=== PATIENT | female | born 1985 | race African-American/Black ===

== ENCOUNTER 2016-06-03 19:01 | Outpatient (CLI) | payer MEDICAID ==
[2016-06-03 19:41] LABS: APPEARANCE,URINE CLOUDY; BILIRUBIN,URINE NEGATIVE (NEGATIVE); CALCIUM OXALATE CRYSTALS,URINE TOO NUMEROUS TO CNT /HPF; GLUCOSE, URINE NEGATIVE (NEGATIVE); KETONES,URINE NEGATIVE (NEGATIVE); LEUKOCYTE ESTERASE,URINE SMALL (NEGATIVE); NITRITE,URINE NEGATIVE (NEGATIVE); PROTEIN,URINE 30 mg/dL (NEGATIVE); URINE SPECIFIC GRAVITY 1.017
[2016-06-03 19:45] LABS: ABSOLUTE EOSINOPHILS # (AUTO) 0.1 10^3/uL (0.0-0.6); ABSOLUTE LYMPHOCYTES (AUTO) 1.9 10^3/uL (0.5-4.7); ABSOLUTE MONOCYTES (AUTO) 0.8 10^3/uL (0.1-1.4); BASOPHILS % (AUTO) 0.2 % (0-2); HEMATOCRIT 27.4 % (36.0-47.0); HEMOGLOBIN 9.6 g/dL (12.0-15.5); HGB HCT DIFFERENCE 1.4; LYMPHOCYTES % (AUTO) 21.5 % (13-45); MEAN CORPUSCULAR HEMOGLOBIN 31.4 pg (27.0-33.4); MEAN CORPUSCULAR VOLUME 90 fl (80-97); MONOCYTES % (AUTO) 9.2 % (3-13); RED BLOOD COUNT 3.05 10^6/uL (3.72-5.28); RED CELL DISTRIBUTION WIDTH 14.4 % (11.5-14.0); SEGMENTED NEUTROPHILS % (AUTO) 68.1 % (42-78); WHITE BLOOD COUNT 8.9 10^3/uL (4.0-10.5)
[2016-06-03 19:54] LABS: URINE BARBITURATES SCREEN NEGATIVE; URINE METHADONE SCREEN NEGATIVE; URINE OPIATES LOW NEGATIVE; URINE PHENCYCLIDINE SCREEN NEGATIVE
--- NOTE | 2016-06-03 20:01 | L&D Flow Sheet ---
LD Flowsheet Datetime Report Generated by CPN: 06/03/2016 20:00 Datetime: 06/03/2016 19:43 Patient Care Patient Position/Activity: Left Extreme (Juani Ledgerwood, RN) Datetime: 06/03/2016 19:40 Vital Signs NBP Sys/Ophelia/Mean (mmHg): 117 (QS system process) : 58 (QS system process) : 81 (QS system process) Pulse: 88 (QS system process) Communication LaborFlag: Antepartum (QS system process) Datetime: 06/03/2016 19:37 Patient Care Patient Position/Activity: Right Tilt (Juani Antonio, RN) I/O Interventions: Popsicle (Juani Ledgerwood, RN) Datetime: 06/03/2016 19:30 Uterine Activity Monitor Mode: External (Juani Ubaldogerwood, RN) Frequency (min): none (Juani Ledgerwood, RN) Resting Tone (Palpate): Relaxed (Juani Ledgerwood, RN) Contraction Comments: no contractions noted during palpation, pt reports no feeling of contractions. (Juani Ledgerwood, RN) Assessment A Monitor Mode: External US (Juani Ledgerwood, RN) FHR Baseline Rate : 155 (Juani Ledgerwood, RN) FHR Baseline Changes: No Baseline Change (Juani Ledgerwood, RN) Variability: Moderate 6-25 bpm (Juani Ledgerwood, RN) Accelerations: 15X15 (Juani Ledgerwood, RN) Decelerations: None (Juani Ledgerwood, RN) Datetime: 06/03/2016 19:18 Pain Pain Scale: 3 (Juani Ledgerwood, RN) Pain Presence: Constant (Juani Ledgerwood, RN) Pain Type: Sharp (Juani Ledgerwood, RN) Pain Location: Perineum (Juani Ledgerwood, RN) Vaginal Exam Vaginal Bleeding: None (Juani Ledgerwood, RN) Maternal Assessment Level of Consciousness: Fully Conscious (Juani Ledgerwood, RN) DTR's/Clonus: DTRs 2+; No Clonus (Juani Ledgerwood, RN) Headache: Denies (Juani Ledgerwood, RN) Breath Sounds, Left: Clear and Equal (Juani Ledgerwood, RN) Breath Sounds, Right: Clear and Equal (Juani Ledgerwood, RN) Nausea/Vomiting: Denies (Juani Ledgerwood, RN) RUQ Epigastric Pain: Denies (Juani Ledgerwood, RN) Teaching Instructional Method: Demo; Verbal; Patient Instructed (Juani Ledgerwood, RN) Plan of Care: Plan of Care Discussed (Juani Ledgerwood, RN) Unit Routine: [place] to Room; Call Wu; Bed; Visiting Policy; Waiting Areas; Handwashing; Monitoring; Safety/Fall Risk Prevention (Juani Ledgerwood, RN) Communication LaborFlag: Antepartum (QS system process) Datetime: 02/20/2016 11:58 Communication LaborFlag: Antepartum (QS system process) Datetime: 02/20/2016 11:30 Communication LaborFlag: Antepartum (QS system process) Datetime: 02/20/2016 11:00 Communication LaborFlag: Antepartum (QS system process) Datetime: 02/20/2016 09:31 Communication LaborFlag: Antepartum (QS system process) Datetime: 02/20/2016 09:30 Communication LaborFlag: Antepartum (QS system process) Datetime: 02/20/2016 09:11 Communication LaborFlag: Antepartum (QS system process) Datetime: 02/20/2016 09:01 Communication LaborFlag: Antepartum (QS system process) Datetime: 06/03/2015 05:35 Communication LaborFlag: Antepartum (QS system process) Datetime: 06/03/2015 05:03 Communication LaborFlag: Antepartum (QS system process) Datetime: 06/03/2015 04:36 Temperature (C): 36.7 (QS system process) Communication LaborFlag: Antepartum (QS system process) Datetime: 06/03/2015 03:18 Communication LaborFlag: Antepartum (QS system process) Datetime: 06/03/2015 03:15 Communication LaborFlag: Antepartum (QS system process)
[2016-06-03 20:30] LABS: RUBELLA IGG ANTIBODY 8.83 IU/mL
[2016-06-03 20:43] LABS: ADD HIVPANEL? NO; HIV (1 AND 2) ANTIBODY NEGATIVE (NEGATIVE)
--- NOTE | 2016-06-03 21:24 | Non Stress Test Report ---
Non Stress Test Datetime Report Generated by CPN: 06/03/2016 21:23 DEMOGRAPHIC EGA NST: 39.0 INDICATION Indication for Study: Ordered by Provider VITAL SIGNS Temperature - NST: 98.0 Pulse - NST: 88 RESP - NST: 14 NBPSYS NST: 117 NBPDIA NST: 58 MONITORING Monitor Explained: Monitor Explained; Test Explained; Patient Verbalized Understanding Time on Monitor: 06/03/2016 19:05 Time off Monitor: 06/02/2016 20:35 NST Duration: -1350 NST INTERVENTIONS NST Interventions: PO Hydration Physician Notified NST: Dr Adams BABY A: [id number] BABY A Contraction Frequency : none FHR Baseline : 155 Accelerations : 15X15 Decelerations : None Variability : Moderate 6-25bpm NST Review: Meets Criteria for Reactive NST NST Review and Verified By : RCahoon, RNC NST Results: Reactive NST REPORT Report Trigger: Send Report
[2016-06-05 06:39] LABS: HEPATITIS C VIRUS AB 0.1 s/co ratio (0.0-0.9)
== END 2016-06-03 21:09 | disposition home or self-care (01) ==
LOC: LC 19:01
PROVIDERS: ATTEND Obstetrics & Gynecology
PROC: 4A1HXCZ Monitoring of Products of Conception, Cardiac Rate, External Approach (ICD-10-PCS; principal; 2016-06-03)
DX: O26.893 Other specified pregnancy related conditions, third trimester (principal); R10.2 Pelvic and perineal pain; Z3A.39 39 weeks gestation of pregnancy
CPT/HCPCS: 36415; 59025; 80307; 81001; 85025; 86592; 86701; 86762; 86803; 86804; 86850; 86900; 86901; 87340

== ENCOUNTER 2016-06-11 06:17 | Inpatient (IN) | payer MEDICAID ==
[2016-06-11] MEDS ORDERED: PENICILLIN G-K 5 MILLION UNIT VIAL ONE (06:44)
[2016-06-11] MEDS ORDERED: LIDOCAINE 1% INJ-PF (10 MG/ML) 30 ML SDV ONE (06:44)
[2016-06-11] MEDS ORDERED: MISOPROSTOL 0.2 MG TABLET ONE (06:44)
[2016-06-11] MEDS ORDERED: OXYTOCIN/NORMAL SALINE 20 UNIT/1,000 ML RTUINJ ONE (06:44)
[2016-06-11] MEDS ORDERED: OXYTOCIN 10 UNIT/ML VIAL ONE (06:45)
[2016-06-11 07:19] LABS: ABSOLUTE EOSINOPHILS # (AUTO) 0.1 10^3/uL (0.0-0.6); ABSOLUTE LYMPHOCYTES (AUTO) 2.1 10^3/uL (0.5-4.7); ABSOLUTE MONOCYTES (AUTO) 0.8 10^3/uL (0.1-1.4); ABSOLUTE NEUT (AUTO) 6.5 10^3/uL (1.7-8.2); BASOPHILS % (AUTO) 0.3 % (0-2); EOSINOPHILS % (AUTO) 0.8 % (0-6); HEMATOCRIT 29.9 % (36.0-47.0); HEMOGLOBIN 10.4 g/dL (12.0-15.5); HGB HCT DIFFERENCE 1.3; LYMPHOCYTES % (AUTO) 22.3 % (13-45); MEAN CORPUSCULAR HEMOGLOBIN 31.1 pg (27.0-33.4); MEAN CORPUSCULAR HGB CONC 34.6 g/dL (32.0-36.0); MEAN CORPUSCULAR VOLUME 90 fl (80-97); MONOCYTES % (AUTO) 8.8 % (3-13); RED BLOOD COUNT 3.33 10^6/uL (3.72-5.28); RED CELL DISTRIBUTION WIDTH 14.7 % (11.5-14.0); SEGMENTED NEUTROPHILS % (AUTO) 67.8 % (42-78); WHITE BLOOD COUNT 9.6 10^3/uL (4.0-10.5)
[2016-06-11 07:27] LABS: APPEARANCE,URINE TURBID; BILIRUBIN,URINE SMALL (NEGATIVE); GLUCOSE, URINE NEGATIVE (NEGATIVE); KETONES,URINE NEGATIVE (NEGATIVE); LEUKOCYTE ESTERASE,URINE MODERATE (NEGATIVE); NITRITE,URINE NEGATIVE (NEGATIVE); PROTEIN,URINE 100 mg/dL (NEGATIVE); URINE SPECIFIC GRAVITY 1.012; UROBILINOGEN,URINE NEGATIVE mg/dL (<2.0)
[2016-06-11] MEDS ORDERED: EPHEDRINE SULFATE INJ 50 MG/1 ML AMPULE ONE (07:32)
[2016-06-11] MEDS ORDERED: FENTANYL/BUPIVACAINE/NS/PF 200 MCG/100 ML RTUINJ EPI ONE (07:32)
[2016-06-11] MEDS ORDERED: BUPIVACAINE HCL 0.25 % INJ/PF (2.5 MG/1 ML) 30 ML VIAL ONE (07:33)
[2016-06-11] MEDS ORDERED: FENTANYL CITRATE INJ/PF 100 MCG/2 ML AMPUL ONE (07:38)
--- NOTE | 2016-06-11 08:00 | L&D Flow Sheet ---
LD Flowsheet Datetime Report Generated by CPN: 06/11/2016 08:00 Datetime: 06/11/2016 07:59 NBP Sys/Ophelia/Mean (mmHg): 149 (QS system process) : 97 (QS system process) : 116 (QS system process) Pulse: 77 (QS system process) LaborFlag: Antepartum (QS system process) Datetime: 06/11/2016 07:26 Dilatation (cm): 9.5 (Juani Antonio RN) Exam by: Dr Martines (Juani Ledgerwood, RN) Datetime: 06/11/2016 07:24 Monitor Interventions for FHR: FSE Applied (Juani Ledgerwood, RN) Datetime: 06/11/2016 07:17 Communication: Provider at Bedside (Juani Ledgerwood, RN) Communication Comments: Dr Martines at bedside (Juani Ledgerwood, RN) Datetime: 06/11/2016 07:16 Monitor Mode: External (Leandra Bellavance, RNC) Monitor Interventions for UA: [place] Adjusted (Leandra Bellavance, RNC) Frequency (min): 2-5 (Leandra Bellavance, RNC) Quality: Moderate to Strong (Leandra Bellavance, RNC) Duration (sec): 50-60 (Leandra Bellavance, RNC) Pattern: Normal: <= 5 Contractions in 10 Minutes (Leandra Bellavance, RNC) Resting Tone (Palpate): Relaxed (Leandra Bellavance, RNC) Monitor Mode: External US (Leandra Bellavance, RNC) Monitor Interventions for FHR: Ultrasound Adjusted (Leandra Bellavance, RNC) FHR Baseline Rate : 140 (Leandra Bellavance, RNC) Datetime: 06/11/2016 07:15 Level of Consciousness: Fully Conscious (Leandra Bellavance, RNC) DTR's/Clonus: DTRs 2+; No Clonus (Leandra Bellavance, RNC) Headache: Denies (Leandra Bellavance, RNC) Breath Sounds, Left: Clear and Equal (Leandra Bellavance, RNC) Breath Sounds, Right: Clear and Equal (Leandra Bellavance, RNC) Nausea/Vomiting: Denies (Leandra Bellavance, RNC) RUQ Epigastric Pain: Denies (Leandra Bellavance, RNC) Datetime: 06/11/2016 06:56 Pain Scale: 5 (Radha Steven) Pain Presence: Intermittent (Radha Steven) Pain Type: Cramping (Radha Steven) Pain Location: Abdomen; Back (Radha Steven) Pain Goal: 0 (Radha Steven) Pain Relief Measures: Comfort Measures (Radha Steven) Pain Coping: Crying; Writhing (Rdaha Steven) Membrane Status: Ruptured (Radha Steven) Membranes Ruptured Date/Time: 06/11/2016 06:00 (Radha Steven) Membranes Rupture Method: Spontaneous (Radha Steven) Amniotic Fluid Color: Heavy Meconium (Radha Steven) Amniotic Fluid Amount: Moderate (Radha Steven) Amniotic Fluid Odor: Foul (Radha Steven) Vaginal Bleeding: None (Radha Steven) Level of Consciousness: Fully Conscious (Radha Steven) DTR's/Clonus: DTRs 2+; No Clonus (Radha Steven) Headache: Denies (Radha Steven) Breath Sounds, Left: Clear and Equal (Radha Steven) Breath Sounds, Right: Clear and Equal (Radha Steven) Nausea/Vomiting: Denies (Radha Steven) RUQ Epigastric Pain: Denies (Radha Steven) Patient Position/Activity: Left Lateral (Radha Steven) Instructional Method: Verbal (Radha Steven) Plan of Care: Plan of Care Discussed; Vaginal Delivery (Radha Steven) Unit Routine: [place] to Room; Call Wu; Bed; Visiting Policy; Waiting Areas; Infant Security; Phone/Cell Phone Use; Photography; Unit Personnel; Consents Signed; Handwashing; Flu/Illness Precautions; Monitoring; IV Pumps; Safety/Fall Risk Prevention; Diet/Nutrition Services; Bathroom Privileges; Routine Time Outs; Medications (Radha Steven) LaborFlag: Antepartum (QS system process) Datetime: 06/11/2016 06:48 Antibiotics: Penicillin IV (Units) @ (Annotations: [id number] units) (Radha Steven) Datetime: 06/11/2016 06:45 IV/Blood Work: IV Started; IV Bolus Started (Annotations: 18 g right forearm) (Radha Steven) Datetime: 06/11/2016 06:35 Dilatation (cm): 8.0 (Radha Steven) Effacement (%): 70 (Radha Steven) Station: -2 (Radha Steven) Exam by: Dr. Martines (Laura Montero, RN) Datetime: 06/11/2016 06:32 NBP Sys/Ophelia/Mean (mmHg): 129 (QS system process) : 59 (QS system process) : 85 (QS system process) Pulse: 81 (QS system process) LaborFlag: Antepartum (QS system process)
[2016-06-11] MEDS ORDERED: IBUPROFEN 800 MG TABLET ONE (09:06)
[2016-06-11] MEDS ORDERED: ACETAMINOPHEN WITH CODEINE #3 TABLET ONE (09:06)
[2016-06-11] MEDS ORDERED: OXYCODONE HCL IR 5 MG TABLET ONE (09:22)
[2016-06-11] MEDS ORDERED: NA PHOS,M-B/NA PHOS,DI-BA (ADULT) 133 ML ENEMA PR PRN (09:22)
[2016-06-11] MEDS ORDERED: BENZOCAINE/MENTHOL AEROSOL SPRAY 56 ML TOP PRN (09:22)
[2016-06-11] MEDS ORDERED: PROMETHAZINE HCL 25 MG SUPP.RECT PR PRN (09:22)
[2016-06-11] MEDS ORDERED: DIBUCAINE 1% OINTMENT 28 GM TP PRN (09:22)
[2016-06-11] MEDS ORDERED: DIPHENHYDRAMINE HCL 25 MG CAPSULE PO PRN (09:22)
[2016-06-11] MEDS ORDERED: DIPH/PERTUSS(ACELL)/TETANUS VAC/PF 0.5 ML SYR (>=10YO) IM PRN (09:22)
[2016-06-11] MEDS ORDERED: ACETAMINOPHEN 650 MG SUPP.RECT PR PRN (09:22)
[2016-06-11] MEDS ORDERED: PSEUDOEPHEDRINE HCL 30 MG TABLET PO PRN (09:22)
[2016-06-11] MEDS ORDERED: ACETAMINOPHEN WITH CODEINE #3 TABLET PO PRN ×2 (09:22)
[2016-06-11] MEDS ORDERED: MAGNESIUM HYDROXIDE SUSP 30 ML UDCUP PO PRN (09:22)
[2016-06-11] MEDS ORDERED: ZOLPIDEM TARTRATE 5 MG TABLET PO PRN (09:22)
[2016-06-11] MEDS ORDERED: OXYTOCIN/NORMAL SALINE 1,000 ML IV PRN (09:22)
[2016-06-11] MEDS ORDERED: MEASLES,MUMPS&RUBELLA VACC/PF 0.5 ML VIAL SUBCUT PRN (09:22)
[2016-06-11] MEDS ORDERED: PROMETHAZINE HCL INJ 25 MG/1 ML VIAL IV PRN (09:22)
[2016-06-11] MEDS ORDERED: GLYCERIN/WITCH HAZEL LEAF 1 EACH MED..PAD TP PRN (09:22)
[2016-06-11] MEDS ORDERED: PROMETHAZINE HCL 25 MG TABLET PO PRN (09:22)
--- NOTE | 2016-06-11 10:50 | Admission Physical ---
Datetime Report Generated by CPN: 06/11/2016 10:50 CURRENT ADMISSION Chief Complaint: Uterine Contractions; Suspected Ruptured Membranes Indication for Induction: Not Applicable; Post Dates Admit Plan: Admit to Unit; Initiate Labor Protocol ALLERGIES Medication Allergies: No Medication Allergies: latex/CA/swelling (06/03/2016) Medication Allergies: latex/CA/swelling (02/21/2016) Medication Allergies: latex/CA/swelling (02/20/2016) Medication Allergies: latex/CA/swelling (07/07/2015) Medication Allergies: Latex/CA/swelling (06/03/2015) Medication Allergies: Latex/CA/swelling (11/10/2014) Latex: Latex Allergies Food Allergies: none Environmental Allergies: none OBSTETRICAL HISTORY EDC: 06/10/2016 00:00 : 6 Para: 4 Term: 2 : 2 SAB: 1 IAB: 0 Ectopic: 0 Livin Cesareans: 2 VBACs: 0 Multiple Births: 0 Gestational Diabetes: Unknown Rh Sensitization: Unknown Incompetent Cervix: Unknown LISSETTE: Unknown Infertility: Unknown ART Treatment: Unknown Uterine Anomaly: Unknown Hx Previous C/S: Yes Macrosomia: Unknown Hx Loss/Stillborn: Unknown PIH: Unknown Hx : No Placenta Previa/Abruption: Unknown PTL/PROM: Yes Post Hemorrhage: Unknown Obstetrical History Comments: G1: SAB G2: 2009, term G3: 2010, 29 week G4: 2014, term c/s for failure to progress G5: 2015, PPROM 24wk, , alive, no complications per pt G6: Current * History per pt SEE RECORDS Alcohol: No Marijuana : Yes Cocaine: No Other Illicit Drugs: No Cigarettes: Former Smoker. [id number] MEDICAL HISTORY Diabetes: Unknown Blood Transfusion: Unknown Pulmonary Disease (Asthma, TB): Unknown Breast Disease: Unknown Hypertension: Unknown Trauma Manager Surgery: Unknown Heart Disease: Unknown Hosp/Surgery: Yes Autoimmune Disorder: Unknown Anesthetic Complications: Unknown Kidney Disease: Unknown Abnormal Pap Smear: Unknown Neuro/Epilepsy: Unknown Psychiatric Disorders: Unknown Other Medical Diseases: Unknown Hepatitis/Liver Disease: Unknown Significant Family History: Unknown Varicosities/Phlebitis: Unknown Trauma/Violence : Unknown Thyroid Dysfunction: Unknown Medical History Comments: CHILDBIRTH _ C/SECTION x 1 INFECTIOUS HISTORY Gonorrhea: Unknown Genital Herpes: Unknown Chlamydia: Unknown Tuberculosis: Unknown Syphilis: Unknown Hepatitis: Unknown Rash or Viral Illness: Unknown HPV: Unknown PHYSICAL EXAM General: Normal HEENT: Normal Neurologic: Normal Thyroid: Normal Heart: Normal Lungs: Normal Breast: Deferred Back: Normal Abdomen: Normal Genitourinary Exam: Normal Extremities: Normal DTRs: Normal Pelvic Type: Adequate Vital Signs: Reviewed; Within Normal Limits MEMBRANES Pooling: Positive Membranes: Ruptured Amniotic Fluid Color: Meconium, Heavy FETUS A EGA: 40.1 Monitoring: External US FHR- Baseline: 130 Variability: Moderate 6-25bpm Accelerations: 10X10 Decelerations: None FHR Category: Category II Presentation: Vertex Admit Comment: 31yo (H/o x 2, C/S x 1 then proven pelvis x1). Largest baby vaginally was 6#6oz. She reports no complications with . She reports SROM approx 1 hour ago. Pea soup meconium noted. complicated by No care. Suspect 40+1ega by 25wks US. She also has a h/o bartholin's cyst on right which was apparently marsupialized 08/30/2015 - however per pt reaccumulated in approx 1 month and now is 3-4cm on right. Left is normal. She takes oxycodone nieto for scoliosis and smoke THC - last was last week. She reports seeing Dr. English in the past but has had no care because pt reports that her medicaid was taken away. Anticipate . Will attept to get pt epidural. EFW 7-7.5# PLANS FOR LABOR AND DELIVERY Labor and Delivery: None Pain Management: Epidural Feeding Preference: Formula INFORMED CONSENT Informed Consent Obtained: Vaginal Delivery; Vaginal After ; Risks, Benefits and Alternatives Discussed Signature: with User ID: [email or web address] : I personally evaluated and examined the patient in conjunction with the MLP and agree with the assessment, treatment plan and disposition.
[2016-06-11] MEDS: FAMOTIDINE 20 MG TABLET PO SCH ×2 (12:19→21:17)
[2016-06-11] MEDS: PRENATAL VITAMIN W-O CA NO5/FE FUMARATE/FA CAPSULE PO SCH (12:19)
[2016-06-11] MEDS: FERROUS SULFATE 325 MG TABLET PO SCH ×2 (12:19→18:01)
[2016-06-11] MEDS: DOCUSATE SODIUM 100 MG CAPSULE PO SCH ×2 (12:19→18:01)
[2016-06-11] MEDS: OXYCODONE HCL SR 10 MG TABLET PO SCH ×2 (12:19→22:36)
[2016-06-11] MEDS: SENNOSIDES/DOCUSATE 8.6-50 MG 1 EACH TABLET PO SCH (12:19)
[2016-06-11] MEDS: IBUPROFEN 800 MG TABLET PO SCH ×2 (13:48→21:15)
--- NOTE | 2016-06-11 19:00 | L&D Flow Sheet ---
LD Flowsheet Datetime Report Generated by CPN: 06/11/2016 19:00 Datetime: 06/11/2016 10:05 NBP Sys/Ophelia/Mean (mmHg): 114 (QS system process) : 56 (QS system process) : 81 (QS system process) Pulse: 57 (QS system process) Respirations: 17 (Leandra Bellavance, RNC) Datetime: 06/11/2016 09:50 NBP Sys/Ophelia/Mean (mmHg): 109 (QS system process) : 53 (QS system process) : 77 (QS system process) Pulse: 57 (QS system process) Respirations: 16 (Leandra Bellavance, RNC) Datetime: 06/11/2016 09:36 NBP Sys/Ophelia/Mean (mmHg): 126 (QS system process) : 58 (QS system process) : 84 (QS system process) Pulse: 76 (QS system process) Respirations: 18 (Leandra Bellavance, RNC) Datetime: 06/11/2016 09:33 NBP Sys/Ophelia/Mean (mmHg): 102 (QS system process) : 58 (QS system process) : 77 (QS system process) Pulse: 70 (QS system process) Respirations: 16 (Leandra Bellavance, RNC) Pain Assessment Comments: pain better No c/o (Leandra Bellavance, RNC) Datetime: 06/11/2016 08:50 NBP Sys/Ophelia/Mean (mmHg): 121 (QS system process) : 62 (QS system process) : 89 (QS system process) Pulse: 190 (QS system process) Temperature (F): 97.6 (Leandra Bellavance, RNC) Temperature (C): 36.4 (QS system process) Pain Assessment Comments: medicated with oxycodone 10 mg po for back pain The treatment for back pain was discussed with her private doctor Dr English (Leandra Bellavance, RNC) Datetime: 06/11/2016 08:45 Stage of : Recovery (Leandra Bellavance, RNC) Communication Comments: delivery of placenta Pitocin hung (Leandra Bellavance, RNC) Datetime: 06/11/2016 08:39 Respirations: 18 (Leandra Bellavance, RNC) Stage 2 Comments: delivery by Dain Olson CNM (Leandra Bellavance, RNC) Additional Nursing Comments: delivery of viable female (Leandra Bellavance, RNC) LaborFlag: Antepartum (QS system process) Datetime: 06/11/2016 08:35 Monitor Mode: External (Leandra Bellavance, RNC) Frequency (min): 2-2.5 (Leandra Bellavance, RNC) Quality: Moderate to Strong (Leandra Bellavance, RNC) Duration (sec): 60-80 (Leandra Bellavance, RNC) Resting Tone (Palpate): Relaxed (Leandra Bellavance, RNC) Monitor Mode: External US (Leandra Bellavance, RNC) FHR Baseline Rate : 110 (Leandra Bellavance, RNC) Variability: Moderate 6-25 bpm (Leandra Bellavance, RNC) Accelerations: None (Leandra Bellavance, RNC) Decelerations: Variable (Leandra Bellavance, RNC) IV/Blood Work: IV Infusing per Order (Leandra Bellavance, RNC) Patient Position/Activity: Semi-Fowlers (Leandra Bellavance, RNC) Pushing Position: Pushing with Contractions (Leandra Bellavance, RNC) Pushing Progress: Descent with Pushing (Leandra Bellavance, RNC) Datetime: 06/11/2016 08:33 NBP Sys/Ophelia/Mean (mmHg): 139 (QS system process) : 60 (QS system process) : 86 (QS system process) Pulse: 114 (QS system process) LaborFlag: Antepartum (QS system process) Datetime: 06/11/2016 08:30 Monitor Mode: External (Leandra Bellavance, RNC) Frequency (min): 2-3 (Leandra Bellavance, RNC) Quality: Moderate to Strong (Leandra Bellavance, RNC) Duration (sec): 50-60 (Leandra Bellavance, RNC) Resting Tone (Palpate): Relaxed (Leandra Bellavance, RNC) Monitor Mode: External US (Leandra Bellavance, RNC) FHR Baseline Rate : 110 (Leandra Bellavance, RNC) Variability: Moderate 6-25 bpm (Leandra Bellavance, RNC) Accelerations: None (Leandra Bellavance, RNC) Decelerations: Variable (Leandra Bellavance, RNC) Pushing: Coached on Pushing; Urge to Push (Leandra Bellavance, RNC) Pushing Position: Pushing with Contractions (Leandra Bellavance, RNC) Pushing Progress: Descent with Pushing (Leandra Bellavance, RNC) Datetime: 06/11/2016 08:20 Dilatation (cm): 10.0 (Leandra Bellavance, RNC) Effacement (%): 100 (Leandra Bellavance, RNC) Station: -1 (Leandra Bellavance, RNC) Exam by: D Bellavance RNC (Leandra Bellavance, RNC) Datetime: 06/11/2016 08:17 Monitor Mode: External (Leandra Bellavance, RNC) Frequency (min): 2-4 (Leandra Bellavance, RNC) Quality: Moderate to Strong (Leandra Bellavance, RNC) Duration (sec): 50-70 (Leandra Bellavance, RNC) Resting Tone (Palpate): Relaxed (Leandra Bellavance, RNC) Monitor Mode: External US (Leandra Bellavance, RNC) FHR Baseline Rate : 120 (Leandra Bellavance, RNC) Variability: Moderate 6-25 bpm (Leandra Bellavance, RNC) Accelerations: None (Leandra Bellavance, RNC) Decelerations: Variable (Leandra Bellavance, RNC) IV/Blood Work: IV Infusing per Order (Leandra Bellavance, RNC) Datetime: 06/11/2016 08:15 Monitor Mode: External (Leandra Bellavance, RNC) Monitor Interventions for UA: [place] Adjusted (Leandra Bellavance, RNC) Frequency (min): 2-4 (Leandra Bellavance, RNC) Quality: Moderate to Strong (Leandra Bellavance, RNC) Duration (sec): 60-70 (Leandra Bellavance, RNC) Resting Tone (Palpate): Relaxed (Leandra Bellavance, RNC) Monitor Mode: External US (Leandra Bellavance, RNC) FHR Baseline Rate : 120 (Leandra Bellavance, RNC) Variability: Moderate 6-25 bpm (Leandra Bellavance, RNC) Accelerations: 15X15 (Leandra Bellavance, RNC) Decelerations: None (Leandra Bellavance, RNC) IV/Blood Work: IV Started (Leandra Bellavance, RNC) Patient Care Comments: iv restarted (Leandra Bellavance, RNC) Datetime: 06/11/2016 08:02 NBP Sys/Ophelia/Mean (mmHg): 132 (QS system process) : 77 (QS system process) : 100 (QS system process) Pulse: 60 (QS system process) Respirations: 16 (Leandra Bellavance, RNC) LaborFlag: Antepartum (QS system process) Datetime: 06/11/2016 07:59 NBP Sys/Ophelia/Mean (mmHg): 149 (QS system process) : 97 (QS system process) : 116 (QS system process) Pulse: 77 (QS system process) LaborFlag: Antepartum (QS system process) Datetime: 06/11/2016 07:45 Monitor Mode: External (Leandra Bellavance, RNC) Monitor Interventions for UA: [place] Adjusted (Leandra Bellavance, RNC) Frequency (min): 2-3 (Leandra Bellavance, RNC) Quality: Moderate to Strong (Leandra Bellavance, RNC) Duration (sec): 60-80 (Leandra Bellavance, RNC) Resting Tone (Palpate): Relaxed (Leandra Bellavance, RNC) Monitor Mode: External US (Leandra Bellavance, RNC) Monitor Interventions for FHR: Ultrasound Adjusted (Leandra Bellavance, RNC) FHR Baseline Rate : 120 (Leandra Bellavance, RNC) Variability: Moderate 6-25 bpm (Leandra Bellavance, RNC) Accelerations: None (Leandra Bellavance, RNC) Decelerations: Variable (Leandra Bellavance, RNC) Patient Position/Activity: Left Tilt; Semi-Fowlers (Leandra Bellavance, RNC) Datetime: 06/11/2016 07:43 Anesthesia Plans: Epidural (Leandra Bellavance, RNC) Epidural Positioning: Sitting (Leandra Bellavance, RNC) Epidural Procedure: Cath Placed; Test Dose; Loading Dose (Leandra Bellavance, RNC) Datetime: 06/11/2016 07:26 Dilatation (cm): 9.5 (Juani Ledgerwood, RN) Exam by: Dr Martines (Juani Ledgerwood, RN) Datetime: 06/11/2016 07:24 Monitor Mode: Internal Scalp Electrode (Leandra Bellavance, RNC) Monitor Interventions for FHR: FSE Applied (Juani Ledgerwood, RN) Datetime: 06/11/2016 07:17 Communication: Provider at Bedside (Juani Ledgerwood, RN) Communication Comments: Dr Martines at bedside (Juani Ledgerwood, RN) Datetime: 06/11/2016 07:16 Monitor Mode: External (Leandra Bellavance, RNC) Monitor Interventions for UA: [place] Adjusted (Leandra Bellavance, RNC) Frequency (min): 2-5 (Leandra Bellavance, RNC) Quality: Moderate to Strong (Leandra Bellavance, RNC) Duration (sec): 50-60 (Leandra Bellavance, RNC) Pattern: Normal: <= 5 Contractions in 10 Minutes (Leandra Bellavance, RNC) Resting Tone (Palpate): Relaxed (Leandra Bellavance, RNC) Monitor Mode: External US (Leandra Bellavance, RNC) Monitor Interventions for FHR: Ultrasound Adjusted (Leandra Bellavance, RNC) FHR Baseline Rate : 140 (Leandra Bellavance, RNC) Datetime: 06/11/2016 07:15 Level of Consciousness: Fully Conscious (Leandra Bellavance, RNC) DTR's/Clonus: DTRs 2+; No Clonus (Leandra Bellavance, RNC) Headache: Denies (Leandra Bellavance, RNC) Breath Sounds, Left: Clear and Equal (Leandra Bellavance, RNC) Breath Sounds, Right: Clear and Equal (Leandra Bellavance, RNC) Nausea/Vomiting: Denies (Leandra Hernandez RNC) RUQ Epigastric Pain: Denies (NEETU Rodriguez)
[2016-06-12] MEDS: IBUPROFEN 800 MG TABLET PO SCH ×3 (05:28→21:15)
--- NOTE | 2016-06-12 06:00 | L&D General Admission ---
General Admit Datetime Report Generated by CPN: 06/12/2016 06:00 INFORMATION Patient Age: 29 (04/10/2015 16:10:QS system process) EDC: 06/10/2016 00:00 (06/03/2015 02:51:Hamzah Alonso RN) : 6 (06/03/2015 02:51:Hamzah Alonso RN) Para: 4 (06/03/2015 02:51:Hamzah Alonso RN) Term: 2 (06/03/2015 02:51:Vonnie Tompkins RN) : 2 (06/03/2015 02:51:Hamzah Alonso RN) Spontaneous Abortions: 1 (06/03/2015 02:51:Vonnie Tompkins RN) Induced Abortions: 0 (06/03/2015 02:51:Vonnie Tompkins RN) Livin (06/03/2015 02:51:Hamzah Alonso RN) Cesareans: 2 (06/03/2015 02:51:Hamzah Alonso RN) VBACs: 0 (06/03/2015 02:51:Vonnie Tompkins RN) Ectopic: 0 (06/03/2015 02:51:Vonnie Tompkins RN) Multiple Births: 0 (06/03/2015 02:51:Vonnie Tompkins RN) Baby, Number in Womb: 1 (06/03/2015 02:51:Vonnie Tompkins RN) CARE Primary Steam Tender: [facility] Department (06/03/2015 02:51:Hamzah Alonso RN) Month of 1st Visit: no (06/03/2015 02:51:NEETU Beasley) Adequate Care: No (06/03/2015 02:51:Lali Frankel RN) Height (in): 65 (04/10/2015 16:10:QS system process) ALLERGIES Medication Allergy: No (06/03/2015 02:51:Radha Steven) Medication Allergies: latex/AL/swelling (06/03/2016) (06/03/2016 19:09:QS system process) Latex Allergy: Latex Allergies (06/03/2015 02:51:Lali Frankel RN) Food Allergies: none (06/03/2015 02:51:Radha Steven) Environmental Allergies: none (06/03/2015 02:51:Radha Steven) COMMUNICATION Primary Language: French (06/03/2015 02:51:Vonnie Tompkins RN) Medical Tx Preferred Language: French (06/03/2015 02:51:Vonnie Tompkins RN) Communication Barrier(s): None (06/03/2015 02:51:Lali Frankel RN) DEMOGRAPHICS Address: [address] [place] [phone] (04/10/2015 16:10:QS system process) Zipcode: [phone] (04/10/2015 16:10:QS system process) Home (02/21/2016 14:23:QS system process) Work (04/10/2015 16:10:QS system process) SSN: [id number] (04/10/2015 16:10:QS system process) Next of Kin Name: GERMAN TORRES (04/10/2015 16:10:QS system process) Next of Kin (04/10/2015 16:10:QS system process) Next of Kin Relationship: MO (04/10/2015 16:10:QS system process) Date of : 1985 (04/10/2015 16:10:QS system process) Marital Status: (04/10/2015 16:10:QS system process) Sex: Female (04/10/2015 16:10:QS system process) Race: (04/10/2015 16:10:QS system process) Ethnicity: Non- or (04/10/2015 16:10:QS system process) Advent: Muslim (04/10/2015 16:10:QS system process) DRUG AND ALCOHOL USE Alcohol: No (06/03/2015 02:51:Vonnie Tompkins RN) Cigarettes: Former Smoker. [id number] (06/03/2015 02:51:Vonnie Tompkins RN) Marijuana: Yes (06/03/2015 02:51:Vonnie Tompkins RN) Cocaine: No (06/03/2015 02:51:Vonnie Tompkins RN) Other Illicit Drugs: No (06/03/2015 02:51:Vonnie Tompkins RN) VACCINE HISTORY Influenza Vaccine: No (06/03/2015 02:51:Radha Steven) Pneumococcal Vaccine: No (06/03/2015 02:51:Radha Steven) Tetanus Vaccine: No (06/03/2015 02:51:Radha Steven) Tdap Vaccine: No (06/03/2015 02:51:Radha Steven) Hepatitis B Vaccine: No (06/03/2015 02:51:Radha Steven) Electrical Assembly Supervisor: [facility] (06/03/2015 02:51:Radha Steven) Feeding Preference: Formula (06/03/2015 02:51:Radha Steven) Pain Management Plans: Epidural (06/03/2015 02:51:Radha Steven) Plans for Labor and Delivery: None (06/03/2015 02:51:Radha Steven) LIVING SITUATION/DISCHARGE PLAN Living Arrangements: House (06/03/2015 02:51:Radha Steven) Adequate Access to:: Electric; Heat; Refrigeration; Plumbing/Running water; Phone; Transportation (06/03/2015 02:51:Radha Steven) WIC Program: Yes (06/03/2015 02:51:Radha Maurizio) Currently Using Commun Resources: Yes (06/03/2015 02:51:Radha Steven) Specify Current Resource Used: medicaid (06/03/2015 02:51:Radha Maurizio) LABS Hemoglobin: 10.4 L (06/11/2016 07:02:QS system process) Hematocrit: 29.9 L (06/11/2016 07:02:QS system process) MCV: 90 (06/11/2016 07:02:QS system process) Group Beta Strep: unknown (06/03/2015 02:51:Lali Frankel RN) HIV Results: NEGATIVE (06/03/2016 19:27:QS system process) Rubella: NEGATIVE NEGATIVE IF LESS THAN OR EQUAL TO 9.99 IU/mL POSITIVE IF GREATER THAN OR EQUAL TO 10.0 IU/mL (06/03/2016 19:27:QS system process) Rubella Titer: 8.83 (06/03/2016 19:27:QS system process) OB/PREVIOUS HISTORY History of Previous : Yes (06/03/2015 02:51:Vonnie Tompkins RN) History of Gestational Diabetes: Unknown (06/03/2015 02:51:Vonnie Tompkins RN) History of PIH: Unknown (06/03/2015 02:51:Vonine Tompkins RN) History of Incompetent Cervix: Unknown (06/03/2015 02:51:Vonnie Tompkins RN) History of Placenta Previa/Abrup: Unknown (06/03/2015 02:51:Vonnie Tompkins RN) History of Macrosomia: Unknown (06/03/2015 02:51:Vonnie Tompkins RN) History of Hemorrhage: Unknown (06/03/2015 02:51:Vonnie Tompkins RN) History of Loss/Stillborn: Unknown (06/03/2015 02:51:Vonnie Tompkins RN) History of : No (06/03/2015 02:51:Vonnie Tompkins RN) History of D (Rh) Sensitization: Unknown (06/03/2015 02:51:Vonnie Tompkins RN) History Recurrent Loss/Stillborn: Unknown (06/03/2015 02:51:Vonnie Tompkins RN) History of Uterine Anomaly/LISSETTE: Unknown (06/03/2015 02:51:Vonnie Tompkins RN) History of Infertility: Unknown (06/03/2015 02:51:Vonnie Tompkins RN) History of ART Treatment: Unknown (06/03/2015 02:51:Vonnie Tompkins RN) History of LISSETTE: Unknown (06/03/2015 02:51:Vonnie Tompkins RN) Comments Obstetrical History: G1: SAB G2: 2009, term G3: 2010, 29 week G4: 2015, term c/s for failure to progress G5: 2016, PPROM 24wk, , alive, no complications per pt G6: Current * History per pt (06/03/2015 02:51:Hamzah Alonso RN) MEDICAL HISTORY Med Hx Diabetes: Unknown (06/03/2015 02:51:Vonnie Tompkins RN) Med Hx Hypertension: Unknown (06/03/2015 02:51:Vonnie Tompkins RN) Med Hx Heart Disease: Unknown (06/03/2015 02:51:Vonnie Tompkins RN) Med Hx Autoimmune Disorder: Unknown (06/03/2015 02:51:Vonnie Tompkins RN) Med Hx Kidney Disease/UTI: Unknown (06/03/2015 02:51:Vonnie Tompkins RN) Med Hx Neurologic/Epilepsy: Unknown (06/03/2015 02:51:Vonnie Tompkins RN) Med Hx Psychiatric Disorders: Unknown (06/03/2015 02:51:Vonnie Tompkins RN) Med Hx Hepatitis/Liver Disease: Unknown (06/03/2015 02:51:Vonnie Tompkins RN) Med Hx Varicosities/Phlebitis: Unknown (06/03/2015 02:51:Vonnie Tompkins RN) Med Hx Thyroid Dysfunction: Unknown (06/03/2015 02:51:Vonnie Tompkins RN) Med Hx Trauma/Violence: Unknown (06/03/2015 02:51:Vonnie Tompkins RN) Med Hx Blood Transfusion: Unknown (06/03/2015 02:51:Vonnie Tompkins RN) Med Hx Pulmonary (Asthma,TB): Unknown (06/03/2015 02:51:Vonnie Tompkins RN) Med Hx Breast: Unknown (06/03/2015 02:51:Vonnie Tompkins RN) Med Hx RADIO HOST Surgery: Unknown (06/03/2015 02:51:Vonnie Tompkins RN) Med Hx Hospitalization/Surgery: Yes (06/03/2015 02:51:Vonnie Tompkins RN) Med Hx Anesthetic Complications: Unknown (06/03/2015 02:51:Vonnie Tompkins RN) Med Hx Abnormal Pap Smear: Unknown (06/03/2015 02:51:Vonnie Tompkins RN) Other Medical Diseases: Unknown (06/03/2015 02:51:Vonnie Tompkins RN) Med Hx Significant Family Hx: Unknown (06/03/2015 02:51:Vonnie Tompkins RN) Details of Med/Surg Hx: CHILDBIRTH _ C/SECTION x 1 (06/03/2015 02:51:Lali Frankel RN) INFECTIOUS HISTORY Inf Hx Gonorrhea: Unknown (06/03/2015 02:51:Vonnie Tompkins RN) Inf Hx Chlamydia: Unknown (06/03/2015 02:51:Vonnie Tompkins RN) Inf Hx Syphilis: Unknown (06/03/2015 02:51:Vonnie Tompkins RN) Inf Hx Human Papilloma Virus: Unknown (06/03/2015 02:51:Vonnie Tompkins RN) Inf Hx Pt/Partner Genital Herpes: Unknown (06/03/2015 02:51:Vonnie Tompkins RN) Inf Hx Tuberculosis/Exposure: Unknown (06/03/2015 02:51:Vonnie Tompkins RN) Inf Hx Hepatitis B,C: Unknown (06/03/2015 02:51:Vonnie Tompkins RN) Inf Hx Rash or Viral Illness: Unknown (06/03/2015 02:51:Vonnie Tompkins RN) GENETIC HISTORY Gen Hx Age >=35 at [place]: Unknown (06/03/2015 02:51:Vonnie Tompkins RN) Gen Hx Thalassemia: Unknown (06/03/2015 02:51:Vonnie Tompkins RN) Gen Hx Congenital Heart Defect: Unknown (06/03/2015 02:51:Vonnie Tompkins RN) Gen Hx Neural Tube Defect: Unknown (06/03/2015 02:51:Vonnie Tompkins RN) Gen Hx Down's Syndrome: Unknown (06/03/2015 02:51:Vonnie Tompkins RN) Gen Hx Ruel-Sachs: Unknown (06/03/2015 02:51:Vonnie Tompkins RN) Gen Hx Michell: Unknown (06/03/2015 02:51:Vonnie Tompkins RN) Gen Hx Familial Dysautonomia: Unknown (06/03/2015 02:51:Vonnie Tompkins RN) Gen Hx Sickle Cell Disease/Trait: Unknown (06/03/2015 02:51:Vonnie Tompkins RN) Gen Hx Hemophilia/Blood Disorder: Unknown (06/03/2015 02:51:Vonnie Tompkins RN) Gen Hx Muscular Dystrophy: Unknown (06/03/2015 02:51:Vonnie Tompkins RN) Gen Hx Cystic Fibrosis: Unknown (06/03/2015 02:51:Vonnie Tompkins RN) Gen Hx Huntingtons Chorea: Unknown (06/03/2015 02:51:Vonnie Tompkins RN) Gen Hx Mental Retardation/Autism: Unknown (06/03/2015 02:51:Vonnie Tompkins RN) Gen Hx Tested for Fragile X: Unknown (06/03/2015 02:51:Vonnie Tompkins RN) Gen Hx Other Inher/Chromosomal: Unknown (06/03/2015 02:51:Vonnie Tompkins RN) Gen Hx Maternal Metabolic DO: Unknown (06/03/2015 02:51:Vonnie Tompkins RN) Gen Hx Pt Father or FOB Defect: Unknown (06/03/2015 02:51:Vonnie Tompkins RN) Gen Hx Other Genetic History: Unknown (06/03/2015 02:51:Vonnie Tompkins RN) Gen Hx Drugs/Meds since LMP: Unknown (06/03/2015 02:51:Vonnie Tompkins RN)
--- NOTE | 2016-06-12 06:00 | L&D Current Admission ---
Current Admit Datetime Report Generated by CPN: 06/12/2016 06:00 ADMISSION INFORMATION Current Admit Date/Time: 06/11/2016 06:55 (06/11/2016 06:55:Radhaconnie Steven) Reason for Admission: Onset of Labor; Rupture of Membranes (06/11/2016 06:55:Radha Maurizio) Chief Complaint: Suspected Rupture of Membranes (06/11/2016 06:56:Radhaconnie Steven) EGA per Dates: 40.1 (06/11/2016 06:55:QS system process) Method of Arrival: Ambulatory (06/11/2016 06:55:Radhaconnie Steven) Records Available: Yes (06/11/2016 06:55:Radhaconnie Steven) General Admission Information: Reviewed (06/11/2016 06:55:Radhaconnie Steven) BELONGINGS/ADVANCED DIRECTIVES Other Belongings: see consent sheet (06/11/2016 06:55:Radha Steven) LEARNING ASSESSMENT Knowledge Level: Understands L_D Process (06/11/2016 06:55:Radha Steven) Barriers to Learning: None (06/11/2016 06:55:Radha Steven) Learning Readiness: Not Interested (06/11/2016 06:55:Radha Steven) Learns Best By: 1 to 1 Instruction (06/11/2016 06:55:Radha Steven) Learning Needs: Labor and Delivery Process; Pain Management; Symptoms to Report; Treatment Plan; Medication (06/11/2016 06:55:Radha Steven) DOMESTIC VIOLANCE SCREENING Dom Viol Threatened/Hurt: No (06/11/2016 06:55:Radha Steven) Hx of Abuse/Neglect past 2yrs: No (06/11/2016 06:55:Radha Steven) Feel Unsafe Going Home: No (06/11/2016 06:55:Radha Steven) Addt'l Observ Indicating Abuse: No (06/11/2016 06:55:Radha Steven) Reason Unable to Complete Screen: N/A, Screen Completed (06/11/2016 06:55:Radha Steven) Considered Personal Harm/Suicide: No (06/11/2016 06:55:Radha Steven) NUTRITIONAL/FUNCTIONAL SCREENING Problem with Appetite >5 Days: No (06/11/2016 06:55:Radha Steven) Chew/Swallow Difficulties: No (06/11/2016 06:55:Radha Steven) Inappropriate Wt Gain/Loss: No (06/11/2016 06:55:Radha Steven) Presence Skin Breakdown/Ulcer: No (06/11/2016 06:55:Radha Steven) Special Diet: No (06/11/2016 06:55:Radha Steven) Pt Requests Truck Driver'S Offsider Visit: No (06/11/2016 06:55:Radha Steven) Hx of Any of the Following?: N/A (06/11/2016 06:55:Radha Steven) New Diagnosis of: N/A (06/11/2016 06:55:Radha Steven) Requires Assist w/Ambulation: No (06/11/2016 06:55:Radha Steven) Uses Assist Device to Ambulate: No (06/11/2016 06:55:Radha Steven) Pt Requires Help w/ADL's: No (06/11/2016 06:55:Radha Steven)
--- NOTE | 2016-06-12 06:15 | L&D Care Plan ---
LD CARE PLANS Datetime Report Generated by CPJimmy: 06/12/2016 06:15 Datetime: 06/11/2016 06:39 State: Risk For (Estella Gray RN) Related To: Labor and Delivery Process; Surgical Procedure; Complication(s) of ; Disease Process; Treatment and Procedures; Post (Estella Gray RN) Goal(s): Patients Pain will be Assessed and Managed; Patient will Verbalize Adequate Relief of Pain or the Ability to [place] with Current Pain (Estella Gray RN) Interventions: Assess Pain Severity on Scale of 0 (None) to 5 (Severe); Assess Type, Location and Intensity of Pain Each Time Client Reports Discomfort and Notify Provider if Unusal Pain Develops; Encourage Proper Breathing and Relaxation Techniques; Offer Alternatives Such as Repositioning, Calm Environment, Massages, Diversional Activities, Ice Pack, Splinting, and Ambulation; Administer Analgesics as Ordered; Assist with Epidural Placement as Appropriate; Evaluate Therapeutic Effectiveness of Medication and Treatments (Estella Gray RN) Outcome: Patient will Report Absence or Relief of Pain Consistent with Established Pain Goal (Estella Gray RN) Status: Ongoing (Estlela Gray RN) Outcome: Patient will have a Decrease in Signs and Symptoms of Discomfort (Estella Gray RN) Status: Ongoing (Estella Gray RN) Outcome: Pain will be Controlled During Procedures (Estella Gray RN) Status: Ongoing (Estella Gray RN) State: Risk For (Estella Gray RN) Related To: Labor and Delivery Process; Surgical Procedure; Perceived or Actual Threat to ; Fear of Unknown; Situational Crisis; Medical Interventions; Significant Life Event (Estella Gray RN) Goal(s): Patient will have Decreased Anxiety and be able to Function at Acceptable Levels (Estella Gray RN) Interventions: Assess Verbal and Nonverbal Behavioral Indicators of Anxiety; Assist Patient to Identify and Verbalize Symptoms of Anxiety; Identify and Demonstrate Techniques to Control Anxiety; Assist Patient with Coping Mechanisms to Manage Anxiety; Provide Theraputic Touch for the Patient; Explain to Patient, Using a Calm Reassuring Approach and Nonmedical Terms, All Activities, Procedures, and Concerns (Estella Gray RN) Outcome: Patient will Identify, Verbalize and Demonstrate Techniques to Control Anxiety (Estella Gray RN) Status: Ongoing (Estella Gray RN) Outcome: Patient's Posture, Facial Expressions, Gestures and Activity Level will Reflect Decreased Anxiety (Estella Gray RN) Status: Ongoing (Estella Gray RN) Outcome: Patient will Verbalize a Sense of Control and/or Acceptance of the Situation (Estella Gray RN) Status: Ongoing (Estella Gray RN) Outcome: Patient will Identify and Utilize Support Person (Estella Gray RN) Status: Ongoing (Estella Gray RN)
--- NOTE | 2016-06-12 10:02 | PDOC PROGRESS REPORT ---
Subjective-OB Subjective: Post Delivery Day: 31 year old. Pt not in room for extended period of time, security notified, looking for patient. Physical Exam (OB) Vital Signs: Temp Pulse Resp BP Pulse Ox 98.1 F 56 L 18 119/61 99 06/12/16 08:03 06/12/16 08:03 06/12/16 08:03 06/12/16 08:03 06/12/16 08:03 Intake & Output 06/11/16 06/12/16 06/13/16 06:59 06:59 06:59 Weight 86.636 kg Objective-Diagnostic Laboratory: 06/11/16 07:02
[2016-06-12] MEDS: PRENATAL VITAMIN W-O CA NO5/FE FUMARATE/FA CAPSULE PO SCH (10:23)
[2016-06-12] MEDS: FAMOTIDINE 20 MG TABLET PO SCH ×2 (10:23→21:15)
[2016-06-12] MEDS: OXYCODONE HCL SR 10 MG TABLET PO SCH ×2 (10:23→21:58)
[2016-06-12] MEDS: DOCUSATE SODIUM 100 MG CAPSULE PO SCH ×2 (10:24→18:22)
[2016-06-12] MEDS: FERROUS SULFATE 325 MG TABLET PO SCH ×2 (10:24→18:23)
[2016-06-12] MEDS: SENNOSIDES/DOCUSATE 8.6-50 MG 1 EACH TABLET PO SCH (10:24)
[2016-06-12 10:58] LABS: HEMATOCRIT 27.9 % (36.0-47.0); HEMOGLOBIN 9.7 g/dL (12.0-15.5); HGB HCT DIFFERENCE 1.2; MEAN CORPUSCULAR HEMOGLOBIN 31.1 pg (27.0-33.4); MEAN CORPUSCULAR HGB CONC 34.8 g/dL (32.0-36.0); MEAN CORPUSCULAR VOLUME 89 fl (80-97); RED BLOOD COUNT 3.12 10^6/uL (3.72-5.28); RED CELL DISTRIBUTION WIDTH 14.8 % (11.5-14.0); WHITE BLOOD COUNT 10.8 10^3/uL (4.0-10.5)
[2016-06-13] MEDS: IBUPROFEN 800 MG TABLET PO SCH ×2 (05:12→18:03)
[2016-06-13] MEDS: PRENATAL VITAMIN W-O CA NO5/FE FUMARATE/FA CAPSULE PO SCH (10:20)
[2016-06-13] MEDS: FERROUS SULFATE 325 MG TABLET PO SCH ×2 (10:20→19:29)
[2016-06-13] MEDS: DOCUSATE SODIUM 100 MG CAPSULE PO SCH ×2 (10:20→19:29)
[2016-06-13] MEDS: SENNOSIDES/DOCUSATE 8.6-50 MG 1 EACH TABLET PO SCH (10:21)
[2016-06-13] MEDS: OXYCODONE HCL SR 10 MG TABLET PO SCH (10:21)
[2016-06-13] MEDS: FAMOTIDINE 20 MG TABLET PO SCH (11:56)
--- NOTE | 2016-06-13 13:26 | PDOC DISCHARGE SUMMARY ---
Final Diagnosis Discharge Date: 06/13/16 - cps involved with family. Baby staying in NICU, CPS worker to see patient prior to discharge Discharge Data - Discharge Medication Home Medications: Oxycodone HCl/Acetaminophen [Oxycodone-Acetaminophen 10-325] 1 tab PO BID Docusate Sodium [Colace 100 mg Capsule] 100 mg PO BID #60 capsule 06/13/16 Ferrous Sulfate [Feosol 325 mg Tablet] 325 mg PO BID #60 tablet 06/13/16 Ibuprofen [Motrin 800 mg Tablet] 800 mg PO Q8HP PRN #90 tablet 06/13/16 Reason(s) for Admission: Onset of Labor Procedures: Ultrasound Intrapartum Procedure(s): Spontaneous Vaginal Delivery - Diagnosis Test Laboratory: Temp Pulse Resp BP Pulse Ox 98.2 F 54 L 16 142/79 H 98 06/13/16 08:28 06/13/16 08:28 06/13/16 08:28 06/13/16 08:28 06/13/16 08:28 06/11/16 06/11/16 06/12/16 06:25 07:02 10:33 RBC 3.33 L 3.12 L Hgb 10.4 L 9.7 L Hct 29.9 L 27.9 L Urine Opiates Screen Cancelled - Discharge information/Instructions Discharge Activity: Activity As Tolerated, Balance Activity w/Rest, No Lifting Over 10 Pounds, Slowly Increase Activity, No tub bath Discharge Diet: Regular Disposition: HOME, SELF-CARE Follow up with: [facility] in: 4, Days - blood pressure
[2016-06-13] MEDS ORDERED: MEDROXYPROGESTERONE ACET INJ 150 MG/1 ML VIAL IM ONE (15:47)
[2016-06-13 20:28] VITALS: BP 126/61
--- NOTE | 2016-06-17 11:45 | Delivery Summary ---
Del Sum A-C Datetime Report Generated by CPN: 06/17/2016 11:45 DELIVERY PERSONNEL DELIVERY PERSONNEL: [id number] Delivery Doctor:: Monique Olson CNM Labor and Delivery Nurse:: NEETU Rodriguez Nursery Nurse:: Sherri Rebolledo RN Nursery Nurse:: Gill Mckinney R.N. Recreational Counselor/PLACEMENT INTERVIEWER: Carley Bernal CNA II Recreational Counselor/PLACEMENT INTERVIEWER: Li Trent CST MATERNAL INFORMATION Delivery Anesthesia: Epidural Medications After Delivery: Pitocin Bolus-Please Comment Estimated Blood Loss (ml): 300 Maternal Complications: None Provider Comments: Called to room 6-head present at vaginal opening. of viable female in vertex OA to JEAN CARLOS at 0839 under epidural anesthesia. Baby covered in meconium. Baby limp on delivery. Bulb suctioned mouth and nose after delivery. Cord immediately clamped x2, then cut by CNM, and placed in warmer where Nursery staff present to stimulate and suction baby. Placenta expelled, via Francis, at 0845. Difficult to examine perineum and vagina as patient has a large Bartholin cyst that is tender to touch. FF at U-2. Some clots expressed with fundal massage. Patient tolerated procedure well. LABOR SUMMARY EDC: 06/10/2016 00:00 No. Babies in Womb: 1 Attempted: No Labor Anesthesia: Epidural LABOR INFORMATION Reason for Induction: Not Applicable Onset of Labor: 06/11/2016 04:00 Complete Dilatation: 06/11/2016 08:20 Oxytocin: N/A Group B Beta Strep: unknown Antibiotics # of Doses: 1 Antibiotics Time of Last Dose: 0648 Name of Antibiotic Given: PENICILLIN G Steroids Given: None Reason Steroids Not Administered: Not Applicable MEMBRANES Membranes Rupture Method: Spontaneous Rupture of Membranes: 06/11/2016 06:00 Length of Rupture (hr): 2.65 Amniotic Fluid Color: Heavy Meconium Amniotic Fluid Amount: Moderate Amniotic Fluid Odor: Foul STAGES OF LABOR Stage 1 hr: 4 Stage 1 min: 20 Stage 2 hr: 0 Stage 2 min: 19 Stage 3 hr: 0 Stage 3 min: 6 Total Time in Labor hr: 4 Total Time in Labor min: 45 VAGINAL DELIVERY Episiotomy: None Laceration Extension: N/A Laceration Type: None Laceration Repair: Not Applicable Sponge Count Correct: N/A Sharps Count Correct: N/A CSECTION DELIVERY CSection Incision: N/A BABY A INFORMATION Delivery Date/Time: 06/11/2016 08:39 Method of Delivery: Vaginal Born in Route : No : N/A Forceps: N/A Vacuum Extraction: N/A Shoulder Dystocia : No PRESENTATION/POSITION BABY A Presentation: Cephalic Cephalic Presentation: Vertex Vertex Position: Left Occipital Anterior Breech Presentation: N/A PLACENTA INFORMATION BABY A Placenta Delivery Time : 06/11/2016 08:45 Placenta Method of Delivery: Spontaneous Placenta Status: Delivered SCORES BABY A Heart Rate 1 min: >100 bpm Resp Effort 1 min: Slow, Irregular Reflex Irritability 1 min: Grimace Muscle Tone 1 min: Some Flexion of Extremities Color 1 min: Body Cucumber, Extremities Blue Resuscitation Effort 1 min: Tactile Stimulation SCORE 1 MIN: 6 Heart Rate 5 min: >100 bpm Resp Effort 5 min: Good Cry Reflex Irritability 5 min: Cough or Sneeze or Pulls Away Muscle Tone 5 min: Some Flexion of Extremities Color 5 min: Body Cucumber, Extremities Blue Resuscitation Effort 5 min: Tactile Stimulation SCORE 5 MIN: 8 INFORMATION BABY A Gestational Age at Delivery: 40.1 Gestational Status: Full Term- 39- 40.6 Weeks Outcome : Liveborn Condition : Stable Infant Sex: Female WEIGHT/LENGTH BABY A Birthweight (gm): 2820 Infant Weight (lb): 6 Weight (oz): 3 Infant Length (in): 19.00 Infant Length (cm): 48.26 CORD INFORMATION BABY A No. Cord Vessels: 3 Nuchal Cord : Around Neck x1, Loose Cord Blood Taken: Yes-For Eval (Mom's Blood Type - or O+) ASSESSMENT BABY A Complications: Multiple Variable Decels; Meconium Skin to Skin: Yes Skin to Skin Time (min): 30 BABY B INFORMATION : N/A SIGNATURES Assignment: Michelle Strange MD Signature: with User ID: Regine : with User ID: Regine : Elvin personally evaluated and examined the patient in conjunction with the MLP and agree with the assessment, treatment plan and disposition.
== END 2016-06-13 20:38 | disposition home or self-care (01) | DRG 775 ==
LOC: LC 06:17 → LR 06:41 → 2S 10:30
PROVIDERS: ADMIT Student in an Organized Health Care Education/Training Program; ATTEND Student in an Organized Health Care Education/Training Program
PROC: 10E0XZZ Delivery of Products of Conception, External Approach (ICD-10-PCS; principal; 2016-06-11)
PROC: 4A1HXCZ Monitoring of Products of Conception, Cardiac Rate, External Approach (ICD-10-PCS; 2016-06-11)
DX: O48.0 Post-term pregnancy (principal); Q67.5 Congenital deformity of spine; O34.211 Maternal care for low transverse scar from previous cesarean delivery; O77.0 Labor and delivery complicated by meconium in amniotic fluid; O26.893 Other specified pregnancy related conditions, third trimester; N75.0 Cyst of Bartholin's gland; O69.81X0 Labor and delivery complicated by cord around neck, without compression, not applicable or unspecified; O76 Abnormality in fetal heart rate and rhythm complicating labor and delivery; Z87.891 Personal history of nicotine dependence; Z91.040 Latex allergy status; Z3A.40 40 weeks gestation of pregnancy; Z37.0 Single live birth
CPT/HCPCS: 36415; 81005; 85025; 85027; 86592; 86850; 86900; 86901; 88307; 90707; J1050; J2540; J2590; J3010; J3490

== ENCOUNTER 2016-07-03 06:07 | Emergency (ER) | payer MEDICAID ==
[2016-07-03] MEDS ORDERED: OXYCODONE-ACETAMINOPHEN 5-325 MG TABLET PO ONE (09:15)
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
[2016-07-03] MEDS ORDERED: LIDOCAINE 1% INJ-PF (10 MG/ML) 30 ML SDV INJ ONE (11:22)
[2016-07-03] MEDS ORDERED: AZITHROMYCIN 250 MG TABLET PO ONE (11:22)
[2016-07-03] MEDS ORDERED: CEFTRIAXONE INJ 250 MG VIAL IM ONE (11:22)
[2016-07-03 13:06] LABS: CHLAM PCR NOT DETECTED (NOT DETECT)
[2016-07-03 13:45] LABS: ADD HIVPANEL? NO; HIV (1 AND 2) ANTIBODY NEGATIVE (NEGATIVE)
[2016-07-03 14:51] VITALS: BP 132/71
--- NOTE | 2016-07-03 21:15 | EKG REPORT ---
SEVERITY:- OTHERWISE NORMAL ECG - SINUS ARRHYTHMIA, RATE 58-90 : Confirmed by: Stanley Rasmussen 03-Jul-2016 21:14:44
== END 2016-07-03 14:30 | disposition home or self-care (01) ==
LOC: ER 06:07
DX: O86.13 Vaginitis following delivery (principal); N76.0 Acute vaginitis; B96.89 Other specified bacterial agents as the cause of diseases classified elsewhere; R07.89 Other chest pain; Y04.2XXA Assault by strike against or bumped into by another person, initial encounter; Y92.009 Unspecified place in unspecified non-institutional (private) residence as the place of occurrence of the external cause
CPT/HCPCS: 36415; 71020; 86592; 86701; 87210; 87491; 87591; 93005; 93010; 99285

== ENCOUNTER 2016-08-04 09:16 | Emergency (ER) | payer MEDICAID ==
[2016-08-04 09:30] VITALS: BP 136/86
--- NOTE | 2016-08-04 09:52 | ER Document Report ---
ED Medical Screen (RME) - General Chief Complaint: Abdominal Pain Stated Complaint: ABDOMINAL PAIN Time Seen by Provider: 08/04/16 09:36 Mode of Arrival: Ambulatory Information source: Patient, [facility] Records Notes: This 31-year-old female patient comes emergency room with multiple complaints, which seem mostly related to depression, running out of her oxycodone early. She is on long-term chronic pain management with oxycodone for her "scoliosis". Reviewing her thoracic and lumbar spine x-rays done on 12/23/2014 showed her scoliosis is quite minimal. She is very vague. Apparently she does not have custody of her children, she has an aunt who told her when she felt like this nerve pills worked well. She states she is "really shaky and stuff", also states not able to eat. Needs pain medicine for her scoliosis. At triage told the nurse she had 2 weeks of nausea vomiting, suprapubic pain, and lower abdominal pain since delivery on 06/11 which is worse past 2 weeks. When reviewing these complaints patient states that she has not had any nausea and vomiting. Has not tried to speak with her doctor about her depressive symptoms. She also states that her doctor cannot do an ultrasound, I asked her why she did not to see her COMMERCIAL REAL ESTATE MANAGER doctor at [facility], and she tried to tell me her OB doctor was the clinic that closed down last year. I have greeted and performed a rapid initial assessment of this patient. A comprehensive ED assessment and evaluation of the patient, analysis of test results and completion of the medical decision making process will be conducted by additional ED providers. TRAVEL OUTSIDE OF THE [place] IN LAST 30 DAYS: No - Related Data Allergies/Adverse Reactions: latex [Latex] Allergy (Mild, Verified 08/04/16 09:30) swelling Past Medical History - Social History Chew tobacco use (# tins/day): No Frequency of alcohol use: Occasional Drug Abuse: None - Past Medical History Cardiac Medical History: Denies: Hx Coronary Artery Disease, Hx Heart Attack, Hx Hypertension Pulmonary Medical History: Denies: Hx Asthma, Hx Bronchitis, Hx COPD, Hx Pneumonia Neurological Medical History: Denies: Hx Cerebrovascular Accident, Hx Seizures Endocrine Medical History: Denies: Hx Diabetes Mellitus Type 1, Hx Diabetes Mellitus Type 2 Renal/ Medical History: Denies: Hx Peritoneal Dialysis Musculoskeltal Medical History: Denies Hx Arthritis, Reports Hx Musculoskeletal Trauma Past Surgical History: Reports: Hx Section, Hx Gynecologic Surgery - Immunizations Immunizations up to date: Yes Hx Diphtheria, Pertussis, Tetanus Vaccination: Yes - 2012 Physical Exam - Vital signs Vitals: Temp Pulse Resp BP Pulse Ox 98 F 100 16 136/86 H 98 08/04/16 09:27 08/04/16 09:27 08/04/16 09:27 08/04/16 09:27 08/04/16 09:27 Course - Vital Signs Vital signs: Temp Pulse Resp BP Pulse Ox 98 F 100 16 136/86 H 98 08/04/16 09:27 08/04/16 09:27 08/04/16 09:27 08/04/16 09:27 08/04/16 09:27
--- NOTE | 2016-08-04 10:43 | ER Document Report ---
ED General - General Chief Complaint: Abdominal Pain Stated Complaint: ABDOMINAL PAIN Time Seen by Provider: 08/04/16 09:36 Mode of Arrival: Ambulatory Information source: Patient Notes: This is a 31-year-old female with a history of chronic back pain and chronic narcotic use who presents for a refill of her pain medication. She states that she has daily back pain she took her last oxycodone last night. She has been in pain management and she states that she gets her narcotic prescriptions from her doctor, Dr. English. She also states that she has run out early and that she thinks she lost her Medicaid and is unsure if she can follow-up with her primary doctor. She has not tried any nonnarcotic pain options. She also reports intermittent mild lower abdominal cramps. She denies dysuria. No fevers or chills. She is status post vaginal delivery on June 11, 2016. She has not followed up with her OB physician. She is not breast-feeding. She is tolerating PO and last ate last night. Last bowel movement was yesterday and was normal. She denies any recent trauma or injury. She denies any weakness or paresthesias, no bowel and bladder symptoms. TRAVEL OUTSIDE OF THE [place] IN LAST 30 DAYS: No - Related Data Allergies/Adverse Reactions: latex [Latex] Allergy (Mild, Verified 08/04/16 09:30) swelling Past Medical History - General Information source: [facility], [facility] - Social History Smoking Status: Current Every Day Smoker Chew tobacco use (# tins/day): No Frequency of alcohol use: Occasional Drug Abuse: None Family History: Reviewed & Not Pertinent Patient has suicidal ideation: No Patient has homicidal ideation: No - Past Medical History Cardiac Medical History: Denies: Hx Coronary Artery Disease, Hx Heart Attack, Hx Hypertension Pulmonary Medical History: Denies: Hx Asthma, Hx Bronchitis, Hx COPD, Hx Pneumonia Neurological Medical History: Denies: Hx Cerebrovascular Accident, Hx Seizures Endocrine Medical History: Denies: Hx Diabetes Mellitus Type 1, Hx Diabetes Mellitus Type 2 Renal/ Medical History: Denies: Hx Peritoneal Dialysis Musculoskeltal Medical History: Denies Hx Arthritis, Reports Hx Musculoskeletal Trauma, Reports Other - chronic back pain Past Surgical History: Reports: Hx Section, Hx Gynecologic Surgery - Immunizations Immunizations up to date: Yes Hx Diphtheria, Pertussis, Tetanus Vaccination: Yes - 2012 Review of Systems - Review of Systems Constitutional: No symptoms reported. denies: Chills, Fever EENT: No symptoms reported Cardiovascular: No symptoms reported. denies: Chest pain Respiratory: No symptoms reported Gastrointestinal: See HPI. denies: Diarrhea, Nausea, Vomiting, Constipation Genitourinary: No symptoms reported. denies: Dysuria Musculoskeletal: See HPI, Back pain Skin: No symptoms reported Hematologic/Lymphatic: No symptoms reported Neurological/Psychological: No symptoms reported. denies: Anxiety, Homicidal ideation, Suicidal ideation Physical Exam - Vital signs Vitals: Temp Pulse Resp BP Pulse Ox 98 F 100 16 136/86 H 98 08/04/16 09:27 08/04/16 09:27 08/04/16 09:27 08/04/16 09:08/04/16 09:27 - Notes Notes: PHYSICAL EXAMINATION: GENERAL: Well-appearing, well-nourished and in no acute distress. Seems somewhat sleepy. Appears comfortable. Conversant and cooperative with exam HEAD: Atraumatic, normocephalic. EYES: Pupils equal round and reactive to light, extraocular movements intact, sclera anicteric, conjunctiva are normal. ENT: nares patent, oropharynx clear without exudates. Moist mucous membranes. NECK: Normal range of motion, supple without lymphadenopathy LUNGS: Breath sounds clear to auscultation bilaterally and equal. No wheezes rales or rhonchi. HEART: Regular rate and rhythm without murmurs ABDOMEN: Soft, nontender, normoactive bowel sounds. No guarding, no rebound. No masses appreciated. EXTREMITIES: Normal range of motion, no pitting or edema. NEUROLOGICAL: Cranial nerves grossly intact. Normal speech. Motor strength +5/ 5 bilateral upper and lower extremities. Sensation intact. PSYCH: Normal mood, flat affect. SKIN: Warm, Dry, normal turgor, no rashes or lesions noted. Course - Re-evaluation Re-evalutation: 08/04/16 10:44 Long discussion with patient regarding chronic pain. Several non-narcotic pain control options discussed and offered (NSAIDs, lidocaine patches, muscle relaxer , heat, etc). Pt continually refused all nonnarcotic options and repeatedly stated that "nothing else works". I discussed the fact that I would not be refilling her chronic pain narcotic medication in the ER today, and that she would need to follow up with pain management or PCP regarding this request. I again offered non narcotic options here in the ER today, and she again refused to try. 08/04/16 11:04 Nurse has notified me that patient left. Patient told the nurse that she did not have time to wait for urine result, that her ride was here and she was leaving. She left without urine result, without prescriptions (naprosyn and lidoderm patches), and without discharge paperwork. - Vital Signs Vital signs: Temp Pulse Resp BP Pulse Ox 98 F 100 16 136/86 H 98 08/04/16 09:27 08/04/16 09:27 08/04/16 09:27 08/04/16 09:27 08/04/16 09:27 Discharge - Discharge Clinical Impression: Chronic back pain greater than 3 months duration, Chronic narcotic use Condition: Stable Disposition: HOME, SELF-CARE Additional Instructions: LOW BACK PAIN: Three out of every four people will have an episode of disabling back pain during their lifetime. Most commonly the pain is due to straining of the muscles and ligaments in the low back. Usual treatment includes: (1) Rest on a firm surface. Avoid lying on your stomach. (2) Ice pack the painful area. After a few days, gentle heat may be used intermittently to relax the area, or ice packs can be continued. (3) Medication may be needed -- muscle relaxers and antiinflammatory medicines are commonly used. (4) As the back improves, exercises are prescribed to strengthen the back and abdominal muscles. Your doctor will advise you on the proper care for your back at each stage in your recovery. You may be better in a few days -- or healing may take several weeks. If new symptoms of a "herniated disc" (radiation of pain, numbness, or tingling down the back of the leg or weakness in the leg) occur, you should be re-examined. Further testing may be necessary. ICE PACKS: Apply ice packs frequently against the painful area. Many different schedules are recommended, such as "20 minutes on, 20 minutes off" or "one hour ice, two hours rest." If you need to work, you may need to go longer between ice treatments. You should plan to have the area ice packed AT LEAST one fourth of the time. The ice should be applied over the wrap, tape, or splint, or over a layer of cloth -- not directly against the skin. Some ice bags have a built-in cloth and can be put directly on the skin. WARM PACKS: After approximately two days, apply gentle heat (such as a heating pad or hot water bottle) for about 20 to 30 minutes about every two hours -- at least four times daily. Warmth and elevation will help you make a more rapid recovery , and will ease the pain considerably. Do not use HOT heat, and never apply heat for longer than 30 minutes. The continuous heat can invisibly damage skin and muscles -- even when no burn is seen on the surface. Damaged muscles can make you MORE sore. Chronic Back Pain Chronic back pain (pain persisting longer than three months) is a common problem. A medical evaluation can look for herniated disc, arthritis, osteoporosis, tumors, and infections. But at least half the time, there's no obvious treatable cause. Anxiety and depression tend to worsen back pain. Ibuprofen or other anti-inflammatory medicine can help. A heating pad, used for 15-20 minutes at a time, can ease pain. For this type of back pain, narcotic medicines should be avoided. Muscle relaxers are rarely helpful unless you're having spasms. Activity is important. Find an aerobic exercise program that your back can tolerate. Too much rest makes back pain worse. Specific back exercises are usually prescribed to strengthen the back and abdominal muscles. Often, a physical therapist can help. Avoid heavy lifting, working while bent over, or standing with both knees straight. Most back pain patients do better with a firm mattress. If new symptoms of a "herniated disc" (radiation of pain, numbness, or tingling down the back of the leg or weakness in the leg) occur, you should be re-examined.. Chronic Pain Control Stress, inactivity, and depression make pain more severe regardless of the cause of the pain. Stress and poor physical condition can cause pain such as headaches and backache. Relaxation: Rest in a quiet place with your eyes closed for 20 minutes twice daily. Concentrate on a pleasant image, or simply "feel" your breathing. Clear your mind. Stress management: Deal with your "stressors." Either take action, or eliminate the stressor from your life. Don't let things hang over you. Accept those things you can't change. Nutrition: Eat small, balanced meals -- don't skip, don't overeat. Meals should be high-carbohydrate, low-sugar, low-fat. Exercise: Exercise helps painful conditions and eases stress. Get 30 minutes of moderate exercise, five days a week. Do an activity that does not flare your pain. Precautions: Pain which continues to disrupt daily activities, or which changes in nature, requires a medical evaluation. Pain Clinic referral is available. We do not manage chronic pain in the Emergency Department. We will try to appropriately help you through an acute flare of your chronic painful condition , but for on-going chronic pain that does not improve, you will need to see your private doctor or pipe bowls paint trimmer. We do not provide repeated medication management of chronic painful conditions. If you wish, we can provide the name of local pain management physicians. FOLLOW-UP CARE: If you have been referred to a physician for follow-up care, call the physician s office for an appointment as you were instructed or within the next two days. If you experience worsening or a significant change in your symptoms, notify the physician immediately or return to the Emergency Department at any time for re-evaluation. Prescriptions: Lidocaine [Lidoderm 5% (700 mg) Transdermal Patch] 1 patch TP DAILY #30 adh..patch Naproxen [Naprosyn 375 Mg Tablet] 375 mg PO BID PRN #40 tablet PRN Reason: For Pain Forms: Smoking Cessation Education
[2016-08-04 11:08] LABS: APPEARANCE,URINE CLEAR; BILIRUBIN,URINE NEGATIVE (NEGATIVE); GLUCOSE, URINE NEGATIVE (NEGATIVE); KETONES,URINE NEGATIVE (NEGATIVE); LEUKOCYTE ESTERASE,URINE NEGATIVE (NEGATIVE); NITRITE,URINE NEGATIVE (NEGATIVE); PROTEIN,URINE NEGATIVE (NEGATIVE); URINE SPECIFIC GRAVITY 1.025; UROBILINOGEN,URINE NEGATIVE mg/dL (<2.0)
== END 2016-08-04 10:58 | disposition home or self-care (01) ==
LOC: ER 09:16
DX: M54.9 Dorsalgia, unspecified (principal); R10.9 Unspecified abdominal pain; G89.29 Other chronic pain; F17.200 Nicotine dependence, unspecified, uncomplicated; F19.20 Other psychoactive substance dependence, uncomplicated
CPT/HCPCS: 81001; 81025; 99284

== ENCOUNTER 2016-09-27 05:20 | Emergency (ER) | payer MEDICAID ==
[2016-09-27 05:28] VITALS: BP 120/80
--- NOTE | 2016-09-27 06:51 | ER Document Report ---
ED General - General Chief Complaint: Vaginal Pain Stated Complaint: VAGINAL PAIN Time Seen by Provider: 09/27/16 06:12 Mode of Arrival: Ambulatory Information source: Patient Notes: 31-year-old female presents with complaints of a condom being retained in her vagina just prior to arrival. Patient denies any other concerns, her presenting complaint to the nurse is completely different from her complaint to myself. Patient states she was too shy to explain the real reason why she was here TRAVEL OUTSIDE OF THE [place] IN LAST 30 DAYS: No - HPI Onset: Just prior to arrival Onset/Duration: Sudden Quality of pain: Burning Severity: Mild Pain Level: Denies Associated symptoms: None Exacerbated by: Denies Relieved by: Denies Similar symptoms previously: No Recently seen / treated by doctor: No - Related Data Allergies/Adverse Reactions: latex [Latex] Allergy (Mild, Verified 08/04/16 09:30) swelling Past Medical History - Social History Smoking Status: Never Smoker Cigarette use (# per day): No Chew tobacco use (# tins/day): No Smoking Education Provided: No Family History: Reviewed & Not Pertinent Patient has suicidal ideation: No Patient has homicidal ideation: No - Past Medical History Cardiac Medical History: Denies: Hx Coronary Artery Disease, Hx Heart Attack, Hx Hypertension Pulmonary Medical History: Denies: Hx Asthma, Hx Bronchitis, Hx COPD, Hx Pneumonia Neurological Medical History: Denies: Hx Cerebrovascular Accident, Hx Seizures Endocrine Medical History: Denies: Hx Diabetes Mellitus Type 1, Hx Diabetes Mellitus Type 2 Renal/ Medical History: Denies: Hx Peritoneal Dialysis Musculoskeltal Medical History: Denies Hx Arthritis, Reports Hx Musculoskeletal Trauma Past Surgical History: Reports: Hx Section, Hx Gynecologic Surgery - Immunizations Immunizations up to date: Yes Hx Diphtheria, Pertussis, Tetanus Vaccination: Yes - 2012 Review of Systems - Review of Systems Notes: REVIEW OF SYSTEMS: CONSTITUTIONAL : Denies fever, chills, or sweats. Denies recent illness. EENT: Denies eye, ear, throat, or mouth pain or symptoms. Denies nasal or sinus congestion or discharge. Denies throat, tongue, or mouth swelling or difficulty swallowing. CARDIOVASCULAR: Denies chest pain. Denies palpitations or racing or irregular heart beat. Denies ankle edema. RESPIRATORY: Denies cough, cold, or chest congestion. Denies shortness of breath, difficulty breathing, or wheezing. GASTROINTESTINAL: Denies abdominal pain or distention. Denies nausea, vomiting , or diarrhea. Denies blood in vomitus, stools, or per rectum. Denies black, tarry stools. Denies constipation. GENITOURINARY: Denies difficulty urinating, painful urination, burning, frequency, blood in urine, or discharge. FEMALE GENITOURINARY: Denies vaginal bleeding, heavy or abnormal periods, irregular periods. Denies vaginal discharge or odor. Admits to foreign body in vagina MUSCULOSKELETAL: Denies back or neck pain or stiffness. Denies joint pain or swelling. SKIN: Denies rash, lesions or sores. HEMATOLOGIC : Denies easy bruising or bleeding. LYMPHATIC: Denies swollen, enlarged glands. NEUROLOGICAL: Denies confusion or altered mental status. Denies passing out or loss of consciousness. Denies dizziness or lightheadedness. Denies headache. Denies weakness or paralysis or loss of use of either side. Denies problems with gait or speech. Denies sensory loss, numbness, or tingling. Denies seizures. PSYCHIATRIC: Denies anxiety or stress. Denies depression, suicidal ideation, or homicidal ideation. ALL OTHER SYSTEMS REVIEWED AND NEGATIVE. PHYSICAL EXAMINATION: GENERAL: Well-appearing, well-nourished and in no acute distress. HEAD: Atraumatic, normocephalic. EYES: Pupils equal round and reactive to light, extraocular movements intact, conjunctiva are normal. ENT: Nares patent, oropharynx clear without exudates. Moist mucous membranes. NECK: Normal range of motion, supple without lymphadenopathy LUNGS: Breath sounds clear to auscultation bilaterally and equal. No wheezes rales or rhonchi. HEART: Regular rate and rhythm without murmurs ABDOMEN: Soft, nontender, nondistended abdomen. No guarding, no rebound. No masses appreciated. Female : Pelvic examination performed with nurse in room noted retained foreign body which was removed with no difficulty Musculoskeletal: Normal range of motion, no pitting or edema. No cyanosis. NEUROLOGICAL: Cranial nerves grossly intact. Normal speech, normal gait. Normal sensory, motor exams PSYCH: Normal mood, normal affect. SKIN: Warm, Dry, normal turgor, no rashes or lesions noted. Dictation was performed using [employer] voice recognition software Physical Exam - Vital signs Vitals: Temp Pulse Resp BP Pulse Ox 98.4 F 97 18 120/80 99 07/21/17 05:25 09/27/16 05:25 09/27/16 05:25 09/27/16 05:25 09/27/16 05:25 Course - Re-evaluation Re-evalutation: 09/27/16 7:34 Patient's complaint was easily resolved with removal of foreign body, she admits that there might be some burning from the latex condom and was given Motrin for her pain. Patient told to follow-up with SERVICE ADMINISTRATOR for further evaluation and care or the health department After performing a Medical Screening Examination, I estimate there is LOW risk for ACUTE APPENDICITIS, BOWEL OBSTRUCTION, ACUTE CHOLECYSTITIS, PERFORATED DIVERTICULITIS, INCARCERATED HERNIA, PANCREATITIS, PELVIC INFLAMMATORY DISEASE, PERFORATED ULCER, ECTOPIC , or TUBO-OVARIAN ABSCESS, thus I consider the discharge disposition reasonable. Also, there is no evidence or peritonitis , sepsis, or toxicity. I have reevaluated this patient multiple times and no significant life threatening changes are noted. The patient and I have discussed the diagnosis and risks, and we agree with discharging home with close follow-up with the understanding that symptoms and presentations can change. We also discussed returning to the Emergency Department immediately if new or worsening symptoms occur. We have discussed the symptoms which are most concerning (e.g., bloody stool, fever, changing or worsening pain, vomiting) that necessitate immediate return. 09/27/16 10:35 I was notified that the patient is here requesting discharge instructions, I had thoroughly explained her discharge to her, I explained my concerns for STD if she does not use a condom, patient states to the nurse that she was here for 5-1/2 hours this is absolutely not sure, patient had been seen immediately upon arrival to the ED and her discharge had been printed within an hour and a half of her presentation - Vital Signs Vital signs: Temp Pulse Resp BP Pulse Ox 98.4 F 97 18 120/80 99 09/27/16 05:25 09/27/16 05:25 09/27/16 05:25 09/27/16 05:25 09/27/16 05:25 Procedures - Additional Procedures foreign body retrieval vaginal Time performed: 06:50 - Using a ring forcep a pelvic examination was performed and a condom was retrieved with no complications Discharge - Discharge Clinical Impression: Foreign body in vagina Qualifiers: Encounter type: initial encounter Qualified Code(s): T19.2XXA - Foreign body in vulva and vagina, initial encounter Condition: Stable Disposition: HOME, SELF-CARE Additional Instructions: Follow up with your physician tomorrow for further care or return to the ED IMMEDIATELY if symptoms worsen or new concerns occur. If you cannot afford to follow up with your primary care physician a list of low cost clinics have been provided at the end of your discharge papers as well. Referrals: VIKA ECHEVERRIA MD [Primary Care Provider] - Follow up tomorrow [facility] [Provider Group] - Follow up tomorrow
[2016-09-27] MEDS ORDERED: IBUPROFEN 600 MG TABLET PO ONE (06:52)
== END 2016-09-27 07:30 | disposition home or self-care (01) ==
LOC: ER 05:20
DX: T19.2XXA Foreign body in vulva and vagina, initial encounter (principal); R10.2 Pelvic and perineal pain; X58.XXXA Exposure to other specified factors, initial encounter; Z91.040 Latex allergy status
CPT/HCPCS: 99283; J3490

== ENCOUNTER 2016-11-06 22:35 | Emergency (ER) | payer MEDICAID ==
[2016-11-06 22:48] VITALS: BP 125/85
--- NOTE | 2016-11-06 23:33 | ER Document Report ---
HPI - HPI Patient complains to provider of: No period for 2 months, STD check Quality of pain: No pain Pain Level: Denies Context: 31-year-old female has not had a menses for 2 months. She had a Depakote shot June 12 after she delivered her fifth child. Her spouse has been cheating on her so she wants to be checked for STDs. She states she has a vaginal discharge but does not have an odor but states it smells like a baby discharge. No dysuria. No pelvic pain. She wanted to know if she was she had just gotten off work so she came to the emergency room. Associated Symptoms: None Exacerbated by: Denies Relieved by: Denies Similar symptoms previously: No Recently seen / treated by doctor: No - ROS ROS below otherwise negative: Yes Systems Reviewed and Negative: Yes All other systems reviewed and negative - REPRODUCTIVE Reproductive: DENIES: : - DERM Skin Color: Normal Past Medical History - General Information source: Patient - Social History Smoking Status: Unknown if Ever Smoked Frequency of alcohol use: None Drug Abuse: None Lives with: Family Family History: Reviewed & Not Pertinent Patient has suicidal ideation: No Patient has homicidal ideation: No - Medical History Medical History: Negative Renal/ Medical History: Denies: Hx Peritoneal Dialysis Musculoskeltal Medical History: Reports Hx Musculoskeletal Trauma Past Surgical History: Reports: Hx Section, Hx Gynecologic Surgery - Immunizations Immunizations up to date: Yes Hx Diphtheria, Pertussis, Tetanus Vaccination: Yes - 2012 [employer] Provider Document - CONSTITUTIONAL Agree With Documented VS: Yes Exam Limitations: No Limitations General Appearance: No Apparent Distress - INFECTION CONTROL TRAVEL OUTSIDE OF THE [place] IN LAST 30 DAYS: No - HEENT HEENT: Normal ENT Exam - NECK Neck: Supple. negative: Lymphadenopathy-Left, Lymphadenopathy-Right - RESPIRATORY Respiratory: Breath Sounds Normal, No Respiratory Distress O2 Sat by Pulse Oximetry: 100 - CARDIOVASCULAR Cardiovascular: Regular Rate, Regular Rhythm - GI/ABDOMEN Gastrointestinal: Abdomen Soft, Abdomen Non-Tender, No Organomegaly - REPRODUCTIVE Female Genitalia: Normal Inspection Notes: There was no introitus vaginal discharge. No lesions. - BACK Back: Normal Inspection. negative: CVA Tenderness-Right, CVA Tenderness-Left - MUSCULOSKELETAL/EXTREMETIES Musculoskeletal/Extremeties: ILIANA FRANCOIS - NEURO Level of Consciousness: Awake, Alert - DERM Integumentary: Warm, Dry, No Rash Course - Re-evaluation Re-evalutation: 11/07/16 04:43 The gonorrhea and Chlamydia are negative. The wet prep is negative. Urine and test were negative. - Vital Signs Vital signs: Temp Pulse Resp BP Pulse Ox 98.7 F 70 17 125/85 100 11/06/16 22:39 11/06/16 22:39 11/06/16 22:39 11/06/16 22:39 11/06/16 22:39 Discharge - Discharge Clinical Impression: Amenorrhea due to Depo Provera Condition: Good Disposition: HOME, SELF-CARE Instructions: [facility], [facility] ( [facility]) Additional Instructions: see health department or obgyn doctor if you do not start your menses call me in 3 hours for the std culture results at [phone] Please complete the patient satisfaction survey if you get one, and return it.. If you do not receive a survey, then you can go to the [facility] website, [email or web address] and place your comments about your very good care. Thank you very much. It was a pleasure being your medical provider today. Referrals: VIKA ECHEVERRIA MD [Primary Care Provider] - Follow up as needed
[2016-11-07 00:35] LABS: APPEARANCE,URINE CLEAR; BILIRUBIN,URINE NEGATIVE (NEGATIVE); GLUCOSE, URINE NEGATIVE (NEGATIVE); KETONES,URINE NEGATIVE (NEGATIVE); LEUKOCYTE ESTERASE,URINE NEGATIVE (NEGATIVE); NITRITE,URINE NEGATIVE (NEGATIVE); PROTEIN,URINE NEGATIVE (NEGATIVE); URINE SPECIFIC GRAVITY 1.025; UROBILINOGEN,URINE NEGATIVE mg/dL (<2.0)
[2016-11-07 02:08] LABS: CHLAM PCR NOT DETECTED (NOT DETECT)
== END 2016-11-07 01:13 | disposition home or self-care (01) ==
LOC: ER 22:35
DX: N91.2 Amenorrhea, unspecified (principal); Z20.2 Contact with and (suspected) exposure to infections with a predominantly sexual mode of transmission
CPT/HCPCS: 81001; 81025; 87210; 87491; 87591; 99283

== ENCOUNTER 2017-12-09 23:41 | Emergency (ER) | payer SELFPAY ==
[2017-12-10 00:15] VITALS: BP 112/57
--- NOTE | 2017-12-10 00:50 | ER Document Report ---
ED General - General Chief Complaint: Abdominal Pain Stated Complaint: ABDOMINAL PAIN Time Seen by Provider: 12/10/17 00:50 Notes: Patient is a 32-year-old female that presents to the emergency department for chief complaint of vaginal lesion and irritation. Patient states that she had a cyst about 7 months ago, and it seemed to heal up after she had a surgical procedure, but over the last week or so she is noticed some bleeding, and irritation in that area, wanted to have it evaluated. She states that the bleeding comes and goes, and she has had some associated discharge. She is not sure if she is . Reports the first day of her last menstrual period was the middle of last month she denies noting any fevers, chills, night sweats , nausea, vomiting, abdominal pain, dysuria or hematuria. Past Medical History: Denies chronic medical conditions Past Surgical History: Bartholin cyst procedure Social History: Denies tobacco, alcohol or drug use. Family History: Reviewed and noncontributory for presenting illness Allergies: Reviewed, see documented allergy list. REVIEW OF SYSTEMS: Unless otherwise stated in this report the patient's positive and negative responses for review of systems for constitutional, eyes, ENT, cardiovascular, respiratory, gastrointestinal, neurological, genitourinary, musculoskeletal, and integumentary systems and related systems to the presenting problem are either as stated in the HPI or were not pertinent or were negative for the symptoms and/or complaints related to the presenting medical problem. PHYSICAL EXAMINATION: Vital signs reviewed, nursing noted reviewed. GENERAL: Well-appearing, well-nourished and in no acute distress. HEAD: Atraumatic, normocephalic. EYES: Eyes appear normal, extraocular movements intact, sclera anicteric, conjunctiva are normal. ENT: nares patent, oropharynx clear without exudates. Moist mucous membranes. NECK: Normal range of motion, supple without lymphadenopathy LUNGS: Breath sounds clear to auscultation bilaterally and equal. No wheezes rales or rhonchi. HEART: Regular rate and rhythm without murmurs ABDOMEN: Soft, nontender, normoactive bowel sounds. No rebound, guarding, or rigidity. No masses appreciated. Pelvic Exam: With a hydrant setter present the exam was explained to the patient and patient agreed to proceed with exam. Patient had an actively draining Bartholin cyst gland, with purulent discharge on the right labia minora. No other external lesions noted. EXTREMITIES: Nontender, good range of motion, no pitting or edema. NEUROLOGICAL: No focal neurological deficits. Moves all extremities spontaneously Motor and sensory grossly intact on exam. PSYCH: Normal mood, normal affect. SKIN: Warm, Dry, normal turgor, no rashes or lesions noted on exposed skin TRAVEL OUTSIDE OF THE [place] IN LAST 30 DAYS: No - Related Data Allergies/Adverse Reactions: latex [Latex] Allergy (Mild, Verified 08/04/16 09:30) swelling Past Medical History - Social History Smoking Status: Never Smoker Chew tobacco use (# tins/day): No Frequency of alcohol use: None Drug Abuse: None Family History: Reviewed & Not Pertinent Patient has suicidal ideation: No Patient has homicidal ideation: No - Past Medical History Cardiac Medical History: Denies: Hx Coronary Artery Disease, Hx Heart Attack, Hx Hypertension Pulmonary Medical History: Denies: Hx Asthma, Hx Bronchitis, Hx COPD, Hx Pneumonia Neurological Medical History: Denies: Hx Cerebrovascular Accident, Hx Seizures Endocrine Medical History: Denies: Hx Diabetes Mellitus Type 1, Hx Diabetes Mellitus Type 2 Renal/ Medical History: Denies: Hx Peritoneal Dialysis Musculoskeletal Medical History: Denies Hx Arthritis, Reports Hx Musculoskeletal Trauma Past Surgical History: Reports: Hx Section, Hx Gynecologic Surgery - Immunizations Immunizations up to date: Yes Hx Diphtheria, Pertussis, Tetanus Vaccination: Yes - 2012 Physical Exam - Vital signs Vitals: Temp Pulse Resp BP Pulse Ox 98.8 F 87 16 112/57 L 99 12/10/17 00:13 12/10/17 00:13 12/10/17 00:13 12/10/17 00:13 12/10/17 00:13 Course - Re-evaluation Re-evalutation: Patient seen and examined vital signs reviewed. Patient was evaluated and treated as appropriate for the patient's presenting symptoms and complaint, with consideration of any critical or life threatening conditions that may be associated with their obtained history and exam as noted above. Patient was treated with Tylenol for pain The patient was re-evaluated and was stable Evaluation was most consistent with Bartholin cyst gland, , and urinary tract infection, patient be treated with Keflex for the UTI and draining cyst, advised to follow-up with [facility], she was not aware she was until today, she is advised to follow-up for this as well. Plan of care was discussed with the patient at this point, after careful consideration I feel that that patient can be discharged from the emergency department, the patient was educated treatments and reasons to return to the emergency department based on their presumed diagnosis as noted above, they were advised to followup with a primary care physician in 2-3 days. Patient was agreeable to plan of care. *Note is created using voice recognition software and may contain spelling, syntax or grammatical errors. Laboratory 12/10/17 01:10 Urine Color YELLOW Urine Appearance SLIGHTLY-CLOUDY Urine pH 5.0 Ur Specific [place] 1.030 Urine Protein NEGATIVE Urine Glucose (UA) NEGATIVE Urine Ketones NEGATIVE Urine Blood NEGATIVE Urine Nitrite NEGATIVE Urine Bilirubin NEGATIVE Urine Urobilinogen 4.0 H Ur Leukocyte Esterase MODERATE H Urine WBC (Auto) 42 Urine RBC (Auto) 7 Squamous Epi Cells Auto 3 Urine Mucus (Auto) FEW Urine Ascorbic Acid NEGATIVE Urine HCG, Qual POSITIVE H - Vital Signs Vital signs: Temp Pulse Resp BP Pulse Ox 98.8 F 87 16 112/57 L 99 12/10/17 00:13 12/10/17 00:13 12/10/17 00:13 12/10/17 00:13 12/10/17 00:13 - Laboratory Laboratory results interpreted by me: 12/10/17 01:10 Urine Urobilinogen 4.0 H Ur Leukocyte Esterase MODERATE H Urine HCG, Qual POSITIVE H Discharge - Discharge Clinical Impression: Bartholin cyst UTI (urinary tract infection) Qualifiers: Urinary tract infection type: site unspecified Hematuria presence: without hematuria Qualified Code(s): N39.0 - Urinary tract infection, site not specified Qualifiers: Weeks of gestation: unspecified Qualified Code(s): Z34.90 - Encounter for supervision of normal , unspecified, unspecified trimester Condition: Stable Disposition: HOME, SELF-CARE Instructions: Urinary Tract Infection ([facility]), Bartholin Gland Cyst or Abscess ( [facility]) Prescriptions: Cephalexin Monohydrate [Keflex 500 mg Capsule] 500 mg PO Q12H 7 Days #7 capsule Referrals: VIKA ECHEVERRIA MD [Primary Care Provider] - Follow up in 3-5 days [facility] [Provider Group] - Follow up in 3-5 days
[2017-12-10] MEDS ORDERED: ACETAMINOPHEN 325 MG TABLET PO ONE (01:09)
[2017-12-10 01:54] LABS: APPEARANCE,URINE SLIGHTLY-CLOUDY; BILIRUBIN,URINE NEGATIVE (NEGATIVE); COLOR,URINE YELLOW; GLUCOSE, URINE NEGATIVE (NEGATIVE); KETONES,URINE NEGATIVE (NEGATIVE); LEUKOCYTE ESTERASE,URINE MODERATE (NEGATIVE); NITRITE,URINE NEGATIVE (NEGATIVE); PROTEIN,URINE NEGATIVE (NEGATIVE)
[2017-12-10] MEDS ORDERED: CEPHALEXIN 500 MG CAPSULE PO ONE (02:04)
== END 2017-12-10 02:29 | disposition home or self-care (01) ==
LOC: ER 23:41
DX: O23.40 Unspecified infection of urinary tract in pregnancy, unspecified trimester (principal); N75.0 Cyst of Bartholin's gland; N39.0 Urinary tract infection, site not specified; Z91.040 Latex allergy status
CPT/HCPCS: 81001; 81025; 99284

== ENCOUNTER 2018-07-20 20:34 | Emergency (ER) | payer MEDICAID ==
[2018-07-21] MEDS ORDERED: OXYCODONE-ACETAMINOPHEN 5-325 MG TABLET PO ONE (01:03)
[2018-07-21] MEDS ORDERED: HYDROCODONE/ACETAMINOPHEN 5-325 MG (6 TAB/ER DISP) PO PRN (01:03)
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
[2018-07-21 03:13] VITALS: BP 120/73
== END 2018-07-21 01:50 | disposition home or self-care (01) ==
LOC: ER 20:34
DX: G89.29 Other chronic pain (principal); M54.5 Low back pain; F11.20 Opioid dependence, uncomplicated
CPT/HCPCS: 99283

== ENCOUNTER 2018-08-05 08:56 | Emergency (ER) | payer MEDICAID, OTHER ==
[2018-08-05] MEDS ORDERED: OXYCODONE-ACETAMINOPHEN 5-325 MG TABLET PO ONE ×2 (09:40→12:07)
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
[2018-08-05 12:53] VITALS: BP 119/72
== END 2018-08-05 12:50 | disposition home or self-care (01) ==
LOC: ER 08:56
DX: S16.1XXA Strain of muscle, fascia and tendon at neck level, initial encounter (principal); S29.019A Strain of muscle and tendon of unspecified wall of thorax, initial encounter; S39.012A Strain of muscle, fascia and tendon of lower back, initial encounter; S40.011A Contusion of right shoulder, initial encounter; S50.01XA Contusion of right elbow, initial encounter; M79.601 Pain in right arm; V43.62XA Car passenger injured in collision with other type car in traffic accident, initial encounter; F17.210 Nicotine dependence, cigarettes, uncomplicated; Z91.040 Latex allergy status; G89.29 Other chronic pain; M54.5 Low back pain
CPT/HCPCS: 72125; 72128; 72131; 81025; 99284